=== PATIENT | female | born 1940 | race Caucasian/White ===

== ENCOUNTER 2016-12-01 19:53 | Outpatient (CLI) | payer MEDICARE, OTHER | END 2016-12-01 19:54 | disposition home or self-care (01) | DX: I10 Essential (primary) hypertension (principal); E78.5 Hyperlipidemia, unspecified; E03.9 Hypothyroidism, unspecified ==

== ENCOUNTER 2017-02-14 14:31 | Outpatient (CLI) | payer MEDICARE, OTHER ==
--- NOTE | 2017-02-14 21:01 | MRI Report ---
EXAM: MRI BRAIN WITHOUT CONTRAST EXAM DATE: 02/14/2017 03:37 PM. CLINICAL HISTORY: 76-year-old woman with tingling sensation along the left side of the face and extre mities for 3-4 weeks. COMPARISON: None. TECHNIQUE: Multiplanar, multisequence T1-weighted and fluid-sensitive MR sequences of the brain were performed. Sequences optimized for routine evaluation. Other: None. IV Contrast: None. FINDINGS: Parenchyma: No evidence of acute infarct on diffusion weighted sequence. Parenchyma demonstrates norm al signal intensity on T1- and T2-weighted sequences. No evidence of prior hemorrhage on susceptibili ty weighted sequence. Pituitary: Unremarkable. Ventricles and Extra-axial Spaces: Ventricles are symmetric and normal in size for age. Extra-axial s paces are unremarkable. Orbits: Unremarkable. Sinuses: Paranasal sinuses and mastoid air cells are clear. Major Vascular Flow Voids: Intact. IMPRESSION: 1. Normal noncontrast brain MRI. No evidence of infarct, hemorrhage, or mass lesion. [facility] Referring Provider Line: [phone] SITE ID: [id number]
== END 2017-02-14 14:32 | disposition home or self-care (01) ==
LOC: DI 14:31
PROVIDERS: ATTEND Family Medicine
DX: R20.2 Paresthesia of skin (principal)
CPT/HCPCS: 70551

== ENCOUNTER 2017-06-29 10:44 | Outpatient (CLI) | payer MEDICARE, OTHER ==
--- NOTE | 2017-06-29 16:01 | Mammography Report ---
DIGITAL DIAGNOSTIC BILATERAL MAMMOGRAM: 06/29/2017 CLINICAL INDICATION: History of right breast cancer, status post lumpectomy and radiation therapy, le ft breast pain. TECHNIQUE: Bilateral CC and MLO views, bilateral laterally exaggerated CC views, left true lateral vi ew. Markers were placed at the site of focal pain in the left upper outer quadrant. COMPARISON: 05/22/2016, 05/04/2015, 04/10/2014, 04/21/2013, 04/29/2012, 05/07/2011, 05/01/2011, 01/11. FINDINGS: The breasts again demonstrate scattered fibroglandular densities bilaterally. Postoperativ e and posttreatment changes in the right breast are stable. Coarse and punctate, typically benign ivet cifications are present. No mammographic abnormality is appreciated in the left upper outer posterior breast, at the site indicated by the markers. There has been no significant interval change. IMPRESSION: BENIGN FINDINGS. RECOMMENDATION: ROUTINE ANNUAL SCREENING UNLESS OTHERWISE CLINICALLY INDICATED. BIRADS CATEGORY 2-BENIGN FINDINGS. STANDARD QUALIFYING STATEMENTS 1. This examination was reviewed with the aid of Computer-Aided Detection (CAD). 2. A negative or benign imaging report should not delay biopsy if clinically suspicious findings are present. Consider surgical consultation if warranted. More than 5% of cancers are not identified by i maging. 3. Dense breasts may obscure an underlying neoplasm. JOB #: [id number] EXT JOB #:[id number]
== END 2017-06-29 10:45 | disposition home or self-care (01) ==
LOC: DI 10:44
PROVIDERS: ATTEND Family Medicine
DX: N64.4 Mastodynia (principal); Z85.3 Personal history of malignant neoplasm of breast
CPT/HCPCS: 77066

== ENCOUNTER 2017-11-24 08:00 | Outpatient (CLI) | payer MEDICARE, OTHER ==
[2017-11-24 20:02] LABS: ALBUMIN 3.9 g/dL (3.2-5.5); ALBUMIN/GLOBULIN RATIO 1.1 (1.0-2.2); ALKALINE PHOSPHATASE 50 IU/L (42-121); ALT ALANINE AMINOTRANSFERASE 26 IU/L (10-60); AST ASPARTATE AMINOTRANSFERASE 30 IU/L (10-42); BILIRUBIN,TOTAL 0.3 mg/dL (0.2-1.0); BUN - BLOOD UREA NITROGEN 17 mg/dL (6-20); CALCIUM 9.2 mg/dL (8.5-10.3); CARBON DIOXIDE - CO2 27 mmol/L (21-32); CHLORIDE 100 mmol/L (101-111); CREATININE 0.9 mg/dL (0.4-1.0); GFR - MDRD 61 (>89); GLUCOSE 90 mg/dL (70-100); SODIUM 134 mmol/L (135-145); TOTAL PROTEIN 7.3 g/dL (6.7-8.2)
[2017-11-24 20:08] LABS: THYROID STIMULATING HORMONE 0.24 uIU/mL (0.34-5.60)
[2017-11-24 21:55] LABS: FREE T4 (FREE THYROXINE) 1.27 ng/dL (0.58-1.64)
== END 2017-11-24 08:01 ==
LOC: LAB.WCP 08:00
PROVIDERS: ATTEND Family Medicine
DX: E03.9 Hypothyroidism, unspecified (principal); R20.2 Paresthesia of skin
CPT/HCPCS: 36415; 80053; 82607; 84439; 84443

== ENCOUNTER 2017-11-30 15:04 | Outpatient (CLI) | payer MEDICARE, OTHER ==
--- NOTE | 2017-11-30 16:20 | Ultrasound Report ---
THYROID ULTRASOUND: 11/30/2017 CLINICAL INDICATION: Followup thyroid nodule. COMPARISON: 01/03/2016. TECHNIQUE: Real-time scanning was performed with inbound sales representative static images obtained. FINDINGS: The right lobe measures 2.7 x 1.0 x 0.7 cm, and the left lobe measures 3.0 x 1.2 x 0.9 cm. The isthmus measures 1 mm. The nodule in the upper pole of the left lobe is stable, measuring 9 x 8 x 8 mm. No new suspicious nodule is identified. IMPRESSION: DIMINUTIVE THYROID, WITH A STABLE SUBCENTIMETER NODULE IN THE UPPER POLE OF THE LEFT LOBE. TD: 11/30/2017 16:19
== END 2017-11-30 15:05 | disposition home or self-care (01) ==
LOC: DI 15:04
PROVIDERS: ATTEND Family Medicine
DX: E04.1 Nontoxic single thyroid nodule (principal)
CPT/HCPCS: 76536

== ENCOUNTER 2018-01-21 20:10 | Emergency (ER) | payer MEDICARE, OTHER ==
[2018-01-21 20:40] LABS: BASOPHILS % (AUTO) 0.8 %; EOSINOPHILS # (AUTO) 0.1 10^3/uL (0.0-0.7); EOSINOPHILS % (AUTO) 1.8 %; HGB - HEMOGLOBIN 13.3 g/dL (12.0-16.0); LYMPHOCYTES # (AUTO) 1.9 10^3/uL (1.5-3.5); LYMPHOCYTES % (AUTO) 32.3 %; MEAN CORPUSCULAR HEMOGLOBIN 31.2 pg (27.0-31.0); MEAN CORPUSCULAR HGB CONC 33.5 g/dL (32.0-36.0); MEAN PLATELET VOLUME 8.5 fL (7.9-10.8); MONOCYTES # (AUTO) 0.6 10^3/uL (0.0-1.0); MONOCYTES % (AUTO) 9.5 %; NEUTROPHILS # (AUTO) 3.3 10^3/uL (1.5-6.6); NEUTROPHILS % (AUTO) 55.6 %; PLT - PLATELET COUNT 212 10^3/uL (130-450); RED BLOOD COUNT 4.27 10^6/uL (4.20-5.40); RED CELL DISTRIBUTION WIDTH 13.6 % (12.0-15.0); WHITE BLOOD COUNT 5.9 x10^3/uL (4.8-10.8)
[2018-01-21 20:48] LABS: ALBUMIN/GLOBULIN RATIO 1.1 (1.0-2.2); BILIRUBIN,TOTAL 0.4 mg/dL (0.2-1.0); CALCIUM 9.5 mg/dL (8.5-10.3); CREATININE 0.9 mg/dL (0.4-1.0); TOTAL PROTEIN 7.7 g/dL (6.7-8.2)
[2018-01-21 20:54] LABS: TROPONIN I < 0.04 ng/mL (<0.49)
[2018-01-21 20:56] LABS: CREATINE KINASE MB 1.4 ng/mL (0.6-6.3)
--- NOTE | 2018-01-21 21:29 | ED Physician Documentation ---
History of Present Illness - Stated complaint Stated Complaint: HBP/IRR HEARTBEAT - Chief complaint Chief Complaint: Cardiac - History obtained from History obtained from: Patient - History of Present Illness Timing: Today, How many hours ago (3) Pain level max: 0 Pain level now: 0 Improved by: rest Worsened by: exertion - Additonal information Additional information: patient complains of sensation of a regular palpitations over past three hours, and continuing while in emergency department. She denies chest pain or pressure , denies shortness of breath. She has had similar palpitations in the past, and underwent an ablation earlier this week. She says she has not had these palpitations last as long as they have tonight, in the past. Review of Systems Cardiac: reports: Palpitations. denies: Chest pain / pressure, Pedal edema Respiratory: reports: Reviewed and negative GI: reports: Reviewed and negative PD PAST MEDICAL HISTORY - Past Medical History Past Medical History: Yes Cardiovascular: Hypertension, High cholesterol, Angina, Arrhythmia Respiratory: COPD, Emphysema Endocrine/Autoimmune: HyPOthyroidism GI: GERD : Kidney stones, Other HEENT: None Psych: Anxiety Musculoskeletal: Osteoporosis, Osteopenia Derm: Eczema - Past Surgical History Past Surgical History: Yes General: Cholecystectomy, Colonoscopy, EGD /CHILDCARE CENTER ADMINISTRATOR: Hysterectomy, Other - Present Medications Home Medications: Ambulatory Orders Medication Instructions Recorded Confirmed Albuterol Sulfate [Proair Hfa] 2 puffs IH Q4H PRN 06/23/13 02/01/16 Calcitriol [Rocaltrol] 0.25 mcg PO DAILY 06/23/13 02/01/16 LORazepam [Ativan] 0.25 - 0.5 mg PO BID PRN 06/23/13 02/01/16 Levothyroxine [Synthroid] 75 mcg PO QDAC 06/23/13 02/01/16 Raloxifene [Evista] 60 mg PO DAILY 06/23/13 02/01/16 Aspirin [Aspir-Low] 81 mg PO DAILY 09/12/15 02/01/16 Estradiol [Vagifem] 10 mcg VG .BIWEEKLY 01/25/16 02/01/16 Fluticasone Propionate [Flonase 1 spray NS BID 01/25/16 02/01/16 Allergy Relief] Fluticasone/Salmeterol 250/50 1 puffs INH BID 01/25/16 02/01/16 [Advair 250 Mcg/50 Mcg] Multivitamin-Min/Iron/FA/Vit K 1 each PO DAILY 01/25/16 02/01/16 [Multi-Day Plus Minerals Tablet] Calcium Carbonate [Antacid] 600 mg PO DAILY 02/01/16 02/01/16 Magnesium Oxide [Mag Ox] 400 mg PO QPM 02/01/16 02/01/16 Metoprolol Tartrate [Lopressor] 25 mg PO BID 02/01/16 02/01/16 - Allergies Allergies/Adverse Reactions: Allergies Allergy/AdvReac Type Severity Reaction Status Date / Time iodine Allergy Severe Anaphylaxis Verified 01/21/18 20:27 penicillin V potassium * Allergy Severe Edema Verified 01/25/16 14:17 [From Pen-Vee K] pseudoephedrine Allergy Severe Unknown Verified 01/25/16 14:17 alendronate sodium Allergy Intermediate unknown Verified 09/12/15 14:14 [From Fosamax] ephedrine [Ephedrine] Allergy Intermediate Unknown Verified 01/25/16 14:17 metronidazole [From Flagyl] Allergy Intermediate Emesis Verified 06/23/13 14:56 Metronidazole HCl * Allergy Intermediate Emesis Verified 06/23/13 14:56 [From Flagyl] - Social History Does the pt smoke?: No Smoking Status: Never smoker Does the pt drink ETOH?: No Does the pt have substance abuse?: No - Immunizations Immunizations are current?: No Immunizations: TDAP >10years/unknown - POLST Patient has POLST: No PD ED PE NORMAL - Vitals Vital signs reviewed: Yes - General General: Alert and oriented X 3, No acute distress, Well developed/nourished - Neck Neck: Thyroid normal - Cardiac Cardiac: No murmur - Respiratory Respiratory: No respiratory distress, Clear bilaterally - Extremities Extremities: No edema PD ED PE EXPANDED - Cardiac Cardiac: Regular Rate, Abnormal Rhythm (frequent extra beats) Results - Vitals Vitals: Oxygen O2 Source Room air - EKG (time done) No standard instances Rate: Rate (enter#) (93) Rhythm: Other (ventricular bigemniy) [place]: Normal Intervals: Normal [place] QRS: Normal Ischemia: Normal ST segments - Labs Labs: Laboratory Tests 01/21/18 01/21/18 01/21/18 20:28 20:28 20:28 WBC 5.9 RBC 4.27 Hgb 13.3 Hct 39.7 MCV 93.0 MCH 31.2 H MCHC 33.5 RDW 13.6 Plt Count 212 MPV 8.5 Neut # (Auto) 3.3 Lymph # (Auto) 1.9 [place] # (Auto) 0.6 Eos # (Auto) 0.1 Baso # (Auto) 0.0 Absolute Nucleated RBC 0.00 Nucleated RBC % 0.1 Sodium Potassium Chloride Carbon Dioxide Anion Gap BUN Creatinine Estimated GFR (MDRD) Glucose Calcium Magnesium Total Bilirubin AST ALT Alkaline Phosphatase Total Creatine Kinase 95 CK-MB (CK-2) 1.4 Troponin I < 0.04 Total Protein Albumin Globulin Albumin/Globulin Ratio Lipase 01/21/18 01/21/18 20:28 20:28 WBC RBC Hgb Hct MCV MCH MCHC RDW Plt Count MPV Neut # (Auto) Lymph # (Auto) [place] # (Auto) Eos # (Auto) Baso # (Auto) Absolute Nucleated RBC Nucleated RBC % Sodium 135 Potassium 3.8 Chloride 101 Carbon Dioxide 27 Anion Gap 7.0 BUN 15 Creatinine 0.9 Estimated GFR (MDRD) 61 L Glucose 112 H Calcium 9.5 Magnesium 2.3 Total Bilirubin 0.4 AST 32 ALT 28 Alkaline Phosphatase 46 Total Creatine Kinase CK-MB (CK-2) Troponin I Total Protein 7.7 Albumin 4.0 Globulin 3.7 Albumin/Globulin Ratio 1.1 Lipase 31 PD MEDICAL DECISION MAKING - ED course Complexity details: reviewed results, re-evaluated patient, considered differential, d/w patient ED course: D/W timber repairer covering for Dr. Daley, and he recommends increasing the toprol to 50mg BID, and contact her timber repairer in AM. - Sepsis Event Vital Signs: Oxygen O2 Source Room air Departure - Departure Disposition: 01 Home, Self Care Clinical Impression: Ventricular bigeminy Condition: Good Instructions: ED Palpitations Comments: Contact your timber repairer in the morning to arrange follow-up. I discussed your case with the covering timber repairer on-call orlin, and he recommends that you increase the toprol to 50mg twice per day. Discharge Date/Time: 01/21/18 23:01
[2018-01-21] MEDS ORDERED: POTASSIUM BICARB 25 MEQ TABLET PO STA (21:57)
[2018-01-21 23:03] VITALS: BP 170/77
== END 2018-01-21 23:01 | disposition home or self-care (01) ==
LOC: ED 20:10
DX: I49.3 Ventricular premature depolarization (principal); I10 Essential (primary) hypertension; E78.00 Pure hypercholesterolemia, unspecified; I20.9 Angina pectoris, unspecified; J44.9 Chronic obstructive pulmonary disease, unspecified; E03.9 Hypothyroidism, unspecified; K21.9 Gastro-esophageal reflux disease without esophagitis; M81.0 Age-related osteoporosis without current pathological fracture; Z87.442 Personal history of urinary calculi; Z79.82 Long term (current) use of aspirin
CPT/HCPCS: 36415; 80053; 82550; 82553; 83690; 83735; 84484; 85025; 93005; 99283

== ENCOUNTER 2018-03-30 11:10 | Outpatient (CLI) | payer MEDICARE, OTHER ==
[2018-03-30 18:39] LABS: BASOPHILS % (AUTO) 0.5 %; EOSINOPHILS % (AUTO) 0.8 %; HGB - HEMOGLOBIN 13.9 g/dL (12.0-16.0); LYMPHOCYTES # (AUTO) 1.5 10^3/uL (1.5-3.5); LYMPHOCYTES % (AUTO) 24.1 %; MEAN CORPUSCULAR HEMOGLOBIN 31.4 pg (27.0-31.0); MEAN CORPUSCULAR HGB CONC 33.8 g/dL (32.0-36.0); MEAN CORPUSCULAR VOLUME 92.7 fL (81.0-99.0); MONOCYTES # (AUTO) 0.5 10^3/uL (0.0-1.0); MONOCYTES % (AUTO) 7.5 %; NEUTROPHILS # (AUTO) 4.1 10^3/uL (1.5-6.6); NEUTROPHILS % (AUTO) 67.1 %; PLT - PLATELET COUNT 182 10^3/uL (130-450); RED BLOOD COUNT 4.43 10^6/uL (4.20-5.40); RED CELL DISTRIBUTION WIDTH 14.2 % (12.0-15.0); WHITE BLOOD COUNT 6.1 x10^3/uL (4.8-10.8)
[2018-03-30 19:20] LABS: ALBUMIN 4.3 g/dL (3.2-5.5); ALBUMIN/GLOBULIN RATIO 1.3 (1.0-2.2); ALKALINE PHOSPHATASE 46 IU/L (42-121); ALT ALANINE AMINOTRANSFERASE 34 IU/L (10-60); AST ASPARTATE AMINOTRANSFERASE 33 IU/L (10-42); BUN - BLOOD UREA NITROGEN 18 mg/dL (6-20); CALCIUM 9.5 mg/dL (8.5-10.3); CARBON DIOXIDE - CO2 27 mmol/L (21-32); CHLORIDE 104 mmol/L (101-111); CREATININE 0.9 mg/dL (0.4-1.0); GFR - MDRD 61 (>89); GLUCOSE 107 mg/dL (70-100); SODIUM 137 mmol/L (135-145); TOTAL PROTEIN 7.5 g/dL (6.7-8.2)
== END 2018-03-30 11:11 ==
LOC: LAB.WCP 11:10
PROVIDERS: ATTEND Family Medicine
DX: R10.32 Left lower quadrant pain (principal); E03.9 Hypothyroidism, unspecified
CPT/HCPCS: 36415; 80053; 84443; 85025

== ENCOUNTER 2018-04-21 11:02 | Outpatient (CLI) | payer MEDICARE, OTHER ==
[2018-04-21] MEDS ORDERED: IOPAMIDOL-300 100 ML VIAL ONE (12:09)
[2018-04-21] MEDS ORDERED: BARIUM SULFATE 450 ML BOTTLE PO ONE (12:44)
[2018-04-21] MEDS ORDERED: IOPAMIDOL-300 100 ML VIAL IVP ONE (12:44)
[2018-04-21] MEDS ORDERED: BARIUM SULFATE 355 ML BOTTLE PO SCH (13:00)
[2018-04-21] MEDS ORDERED: BARIUM SULFATE 355 ML BOTTLE PO ONE (13:00)
--- NOTE | 2018-04-21 17:38 | CT Report ---
Reason: MASTALGIA/ ABDOMINAL PAIN, LLQ Procedure Date: 04/21/2018 Accession Number: [id number] / [id number] Procedure: CT - Abdomen/Pelvis W/ CPT Code: FULL RESULT: EXAM: CT ABDOMEN AND PELVIS EXAM DATE: 04/21/2018 12:51 PM. CLINICAL HISTORY: Mastalgia and abdominal pain in the left lower quadrant. COMPARISONS: None. TECHNIQUE: Routine helical CT imaging was performed through the abdomen and pelvis. IV contrast: 100 mL Isovue-300. Enteric contrast: No. Reconstructions: Coronal and sagittal. In accordance with CT protocol optimization, one or more of the following dose reduction techniques were utilized for this exam: automated exposure control, adjustment of mA and/or KV based on patient size, or use of iterative reconstructive technique. FINDINGS: Lung Bases: Unremarkable. Liver: Normal. No masses. Gallbladder/Bile Ducts: The patient is status post cholecystectomy. Spleen: Normal. Pancreas: Normal. Adrenal Glands: Normal. Kidneys: Normal. No masses or hydronephrosis. Peritoneal Cavity/Bowel: The patient is status post partial colectomy. There is no free fluid or free air. There is no abdominal or pelvic lymphadenopathy. Pelvic Organs: Normal. The bladder and visualized pelvic organs are within normal limits. Vasculature: Aorta is atherosclerotic without aneurysm. Bones: No significant abnormality. Other: None. IMPRESSION: No acute abdominal or pelvic abnormality. [facility]
== END 2018-04-21 11:03 | disposition home or self-care (01) ==
LOC: DI 11:02
PROVIDERS: ATTEND Family Medicine
DX: N64.4 Mastodynia (principal); R10.32 Left lower quadrant pain
CPT/HCPCS: 74177; 77062; A9270; Q9967

== ENCOUNTER 2018-04-21 11:08 | Outpatient (CLI) | payer MEDICARE, OTHER ==
--- NOTE | 2018-04-21 17:55 | Mammography Report ---
Reason: BILAT DIAG DUE TO CHRONIC LEFT BREAST PAIN Procedure Date: 04/21/2018 Accession Number: [id number] / [id number] Procedure: [facility] - Diagnostic Bilat 3D Joshua CPT Code: 36914 FULL RESULT: EXAM: Diagnostic Bilat 3D Joshua DATE: 04/21/2018 3:26 PM CLINICAL HISTORY: Chronic left breast pain. TECHNIQUE: Bilateral CC and MLO views in 2-D technique in 3 tomographic technique were obtained. COMPARISON: 06/29/2017, 05/22/2016, 05/04/2015, 04/10/2014. FINDINGS: The breasts demonstrate heterogeneously dense fibroglandular parenchyma bilaterally. Bilateral typically benign coarse calcification in bilateral typically benign vascular calcifications are seen. Postsurgical changes are identified in the right breast. No mammographic or tomographic abnormalities identified associated with the area of pain in the left breast. There are no suspicious lesions or calcifications in either breast. IMPRESSION: Benign findings RECOMMENDATION: Recommend routine annual Screening mammography unless otherwise clinically indicated. BIRADS CATEGORY 2: Benign findings STANDARD QUALIFYING STATEMENTS: 1. This examination was not reviewed with the aid of Computer-Aided Detection (CAD). 2. A negative or benign imaging report should not delay biopsy if clinically suspicious findings are present. Consider surgical consultation if warrented. More than 5% of cancers are not identified by imaging. 3. Dense breasts may obscure an underlying neoplasm. 4. This examination was reviewed with the aid of 3D imaging (tomography).
== END 2018-04-21 11:09 | disposition home or self-care (01) ==
LOC: DI 11:08
PROVIDERS: ATTEND Family Medicine
DX: N64.4 Mastodynia (principal)
CPT/HCPCS: 77062

== ENCOUNTER 2018-11-16 15:27 | Emergency (ER) | payer MEDICARE, OTHER ==
--- NOTE | 2018-11-16 15:53 | ED Physician Documentation ---
PD HPI ABD PAIN - Stated complaint Stated Complaint: ABD/BACK PAIN - Chief complaint Chief Complaint: Abd Pain - History obtained from History obtained from: Patient - History of Present Illness Timing - onset: Other (3 days of pain from LUQ radiating to L scapula. Intermittent pain with spikes. Worked out today and did fine but pain recurred 2 hrs after workout. Each episode is seconds long at most. Had this a couple of years ago, went away, did not seek medical attention then.) Review of Systems Ten Systems: 10 systems reviewed and negative Constitutional: denies: Fever, Chills Cardiac: denies: Chest pain / pressure, Palpitations Respiratory: denies: Dyspnea, Cough GI: denies: Nausea, Vomiting, Diarrhea PD PAST MEDICAL HISTORY - Past Medical History Cardiovascular: Hypertension, High cholesterol, Angina, Arrhythmia Respiratory: COPD, Emphysema Endocrine/Autoimmune: HyPOthyroidism GI: GERD : Kidney stones, Other HEENT: None Psych: Anxiety Musculoskeletal: Osteoporosis, Osteopenia Derm: Eczema - Past Surgical History Past Surgical History: Yes General: Cholecystectomy, Colonoscopy, EGD /BOOKING OFFICER: Hysterectomy, Other - Present Medications Home Medications: Ambulatory Orders Medication Instructions Recorded Confirmed Albuterol Sulfate [Proair Hfa] 2 puffs IH Q4H PRN 06/23/13 11/16/18 Levothyroxine [Synthroid] 75 mcg PO QDAC 06/23/13 11/16/18 Aspirin [Aspir-Low] 81 mg PO DAILY 09/12/15 11/16/18 Fluticasone/Salmeterol 250/50 1 puffs INH BID 01/25/16 11/16/18 [Advair 250 Mcg/50 Mcg] Metoprolol Tartrate [Lopressor] 25 mg PO BID 02/01/16 11/16/18 Losartan [Cozaar] 1 tab PO BID 11/16/18 11/16/18 Nitrofurantoin Monohyd/M-Cryst 100 mg PO BID #10 capsule 11/16/18 [Macrobid 100 mg Capsule] - Allergies Allergies/Adverse Reactions: Allergies Allergy/AdvReac Type Severity Reaction Status Date / Time iodine Allergy Severe Anaphylaxis Verified 11/16/18 15:33 penicillin V potassium * Allergy Severe Edema Verified 11/16/18 15:33 [From Pen-Vee K] pseudoephedrine Allergy Severe Unknown Verified 11/16/18 15:33 alendronate sodium Allergy Intermediate unknown Verified 11/16/18 15:33 [From Fosamax] ephedrine [Ephedrine] Allergy Intermediate Unknown Verified 11/16/18 15:33 metronidazole [From Flagyl] Allergy Intermediate Emesis Verified 11/16/18 15:33 Metronidazole HCl * Allergy Intermediate Emesis Verified 11/16/18 15:33 [From Flagyl] - Social History Does the pt smoke?: No Smoking Status: Never smoker Does the pt drink ETOH?: No Does the pt have substance abuse?: No - Family History Family history: reports: Non contributory - Immunizations Immunizations are current?: No Immunizations: TDAP >10years/unknown - POLST Patient has POLST: No PD ED PE NORMAL - Vitals Vital signs reviewed: Yes - General General: Alert and oriented X 3, No acute distress - HEENT HEENT: PERRL, EOMI - Neck Neck: Supple, no meningeal sign, No bony TTP - Cardiac Cardiac: RRR (with frequent extrasystoles, PVC on monitor.), No murmur - Respiratory Respiratory: No respiratory distress, Clear bilaterally - Abdomen Abdomen: Normal bowel sounds, Soft, Non tender - Back Back: No CVA TTP, No spinal TTP - Derm Derm: Normal color, Warm and dry - Extremities Extremities: No edema, No calf tenderness / cord - Neuro Neuro: Alert and oriented X 3, Normal speech - Psych Psych: Normal mood, Normal affect Results - Vitals Vitals: Vital Signs - 24 hr 11/16/18 11/16/18 15:31 15:54 Temperature 36.7 C Heart Rate 77 84 Respiratory 17 18 Rate Blood Pressure 187/91 H 159/70 H O2 Saturation 97 97 Oxygen O2 Source Room air - EKG (time done) 1611 Rate: Rate (enter#) (73) Rhythm: NSR (with pvcs) [place]: Normal Intervals: Normal [place] QRS: Normal Ischemia: Normal ST segments Computer interpretation: Agree with computer - Labs Labs: Laboratory Tests 11/16/18 11/16/18 11/16/18 15:45 15:45 15:45 WBC 6.1 RBC 4.57 Hgb 13.9 Hct 41.4 MCV 90.6 MCH 30.4 MCHC 33.5 RDW 14.2 Plt Count 172 MPV 8.5 Neut # (Auto) 3.5 Lymph # (Auto) 1.9 [place] # (Auto) 0.5 Eos # (Auto) 0.1 Baso # (Auto) 0.0 Absolute Nucleated RBC 0.00 Nucleated RBC % 0.0 Sodium 136 Potassium 3.5 Chloride 102 Carbon Dioxide 26 Anion Gap 8.0 BUN 15 Creatinine 0.8 Estimated GFR (MDRD) 70 L Glucose 127 H Calcium 9.5 Total Bilirubin 0.7 AST 29 ALT 24 Alkaline Phosphatase 52 Troponin I < 0.04 Total Protein 7.4 Albumin 4.1 Globulin 3.3 Albumin/Globulin Ratio 1.2 Lipase 37 Urine Color Urine Clarity Urine pH Ur Specific [place] Urine Protein Urine Glucose (UA) Urine Ketones Urine Occult Blood Urine Nitrite Urine Bilirubin Urine Urobilinogen Ur Leukocyte Esterase Urine RBC Urine WBC Ur Squamous Epith Cells Urine Bacteria Ur Microscopic Review Urine Culture Comments 11/16/18 16:30 WBC RBC Hgb Hct MCV MCH MCHC RDW Plt Count MPV Neut # (Auto) Lymph # (Auto) [place] # (Auto) Eos # (Auto) Baso # (Auto) Absolute Nucleated RBC Nucleated RBC % Sodium Potassium Chloride Carbon Dioxide Anion Gap BUN Creatinine Estimated GFR (MDRD) Glucose Calcium Total Bilirubin AST ALT Alkaline Phosphatase Troponin I Total Protein Albumin Globulin Albumin/Globulin Ratio Lipase Urine Color YELLOW Urine Clarity CLEAR Urine pH 6.0 Ur Specific [place] <=1.005 Urine Protein NEGATIVE Urine Glucose (UA) NEGATIVE Urine Ketones NEGATIVE Urine Occult Blood SMALL H Urine Nitrite NEGATIVE Urine Bilirubin NEGATIVE Urine Urobilinogen 0.2 (NORMAL) Ur Leukocyte Esterase SMALL H Urine RBC None Seen Urine WBC 11-25 H Ur Squamous Epith Cells RARE Squamous Urine Bacteria Many H Ur Microscopic Review INDICATED Urine Culture Comments INDICATED PD MEDICAL DECISION MAKING - ED course ED course: 78-year-old woman with fleeting episodic chest pain that is nonexertional and lasts only seconds at a time. She is having PVCs on the monitor but it sounds like these are chronic and not associated with her symptoms. She had no symptoms while in the emergency department. The only positive diagnostic test is a urinalysis of which she does not really have any symptoms but the urinalysis seems pretty impressive so we will treat her with Macrobid. Departure - Departure Disposition: 01 Home, Self Care Clinical Impression: Cystitis Chest pain Qualifiers: Chest pain type: unspecified Qualified Code(s): R07.9 - Chest pain, unspecified Condition: Good Record reviewed to determine appropriate education?: Yes Instructions: ED Chest Pain NonCardiac, ED UTI Cystitis Female Prescriptions: Nitrofurantoin Monohyd/M-Cryst [Macrobid 100 mg Capsule] 100 mg PO BID #10 caps ule Comments: As discussed the pattern of your chest pain suggests no serious etiology but return if it becomes constant or worsens. If it continues to talk with your doctor about stress testing and/or Holter monitor. Follow-up with your doctor, next available appointment. We will culture your urine, the results should be done in 48-72 hours. If an antibiotic change is necessary we will call you. Return if worse in the meantime, especially if you develop increasing flank pain, fevers, or cannot keep down the medication.
[2018-11-16 15:59] LABS: BASOPHILS % (AUTO) 0.3 %; EOSINOPHILS # (AUTO) 0.1 10^3/uL (0.0-0.7); EOSINOPHILS % (AUTO) 1.2 %; HGB - HEMOGLOBIN 13.9 g/dL (12.0-16.0); LYMPHOCYTES # (AUTO) 1.9 10^3/uL (1.5-3.5); LYMPHOCYTES % (AUTO) 31.7 %; MEAN CORPUSCULAR HEMOGLOBIN 30.4 pg (27.0-31.0); MEAN CORPUSCULAR HGB CONC 33.5 g/dL (32.0-36.0); MEAN CORPUSCULAR VOLUME 90.6 fL (81.0-99.0); MEAN PLATELET VOLUME 8.5 fL (7.9-10.8); MONOCYTES # (AUTO) 0.5 10^3/uL (0.0-1.0); NEUTROPHILS # (AUTO) 3.5 10^3/uL (1.5-6.6); NEUTROPHILS % (AUTO) 57.8 %; PLT - PLATELET COUNT 172 10^3/uL (130-450); RED BLOOD COUNT 4.57 10^6/uL (4.20-5.40); RED CELL DISTRIBUTION WIDTH 14.2 % (12.0-15.0); WHITE BLOOD COUNT 6.1 x10^3/uL (4.8-10.8)
[2018-11-16 16:10] LABS: ALBUMIN 4.1 g/dL (3.2-5.5); ALBUMIN/GLOBULIN RATIO 1.2 (1.0-2.2); BILIRUBIN,TOTAL 0.7 mg/dL (0.2-1.0); CALCIUM 9.5 mg/dL (8.5-10.3); CREATININE 0.8 mg/dL (0.4-1.0); TOTAL PROTEIN 7.4 g/dL (6.7-8.2)
[2018-11-16 16:48] LABS: BILIRUBIN,URINE NEGATIVE (NEGATIVE); GLUCOSE, URINE (UA) NEGATIVE (NEGATIVE); KETONES,URINE (UA) NEGATIVE (NEGATIVE); LEUKOCYTE ESTERASE, URINE SMALL (NEGATIVE); NITRITE,URINE NEGATIVE (NEGATIVE); OCCULT BLOOD,URINE SMALL (NEGATIVE); PROTEIN,URINE NEGATIVE (NEGATIVE); UROBILINOGEN,URINE 0.2 (NORMAL) E.U./dL (NORMAL)
[2018-11-16 16:52] LABS: CLARITY,URINE CLEAR (CLEAR)
[2018-11-16 16:53] LABS: BACTERIA,URINE Many /HPF (None Seen); RBC,URINE None Seen /HPF (0-5); SQUAMOUS EPITHELIAL CELL,UR RARE Squamous (<= Few)
[2018-11-16] MEDS ORDERED: NITROFURANTOIN MACRO 100 MG CAPSULE PO STA (17:00)
[2018-11-16 17:05] VITALS: BP 179/82
== END 2018-11-16 17:17 | disposition home or self-care (01) ==
LOC: ED 15:27
DX: N30.90 Cystitis, unspecified without hematuria (principal); R07.9 Chest pain, unspecified; I10 Essential (primary) hypertension
CPT/HCPCS: 36415; 80053; 81001; 83690; 84484; 85025; 87086; 93005; 99283; 99284; A9270; 81003

== ENCOUNTER 2018-12-20 13:21 | Outpatient (CLI) | payer MEDICARE, OTHER | END 2018-12-20 13:22 | disposition home or self-care (01) | LOC: LAB 13:21 | PROVIDERS: ATTEND Physician Assistant | DX: I10 Essential (primary) hypertension (principal); I49.3 Ventricular premature depolarization | CPT/HCPCS: 36415; 84443 ==

== ENCOUNTER 2019-01-04 10:32 | Outpatient (CLI) | payer MEDICARE, OTHER ==
--- NOTE | 2019-01-04 11:40 | XRAY Report ---
Reason: ARTHRITIS,LEFT HIP Procedure Date: 01/04/2019 Accession Number: [id number] / [id number] Procedure: WCP - Hip w/Pelvis 2-3V LT CPT Code: FULL RESULT: EXAM: LEFT HIP RADIOGRAPHY EXAM DATE: 01/04/2019 10:56 AM. CLINICAL HISTORY: Chronic left hip pain. COMPARISON: 02/18/2010 1:52 PM. TECHNIQUE: 2 views. FINDINGS: Bones: Normal. No fractures or bone lesion. Joints: There is mild marginal osteophytosis with mild joint space loss at the left femoral acetabular joint. Osteophytosis has progressed; joint space loss is similar to 2009. Soft Tissues: Normal. No soft tissue swelling. IMPRESSION: Left hip degenerative changes as described. [facility]
== END 2019-01-04 10:33 | disposition home or self-care (01) ==
LOC: DI.WCP 10:32
PROVIDERS: ATTEND Family Medicine
DX: M16.12 Unilateral primary osteoarthritis, left hip (principal)

== ENCOUNTER 2019-01-26 11:22 | Day surgery (SDC) | payer MEDICARE, OTHER ==
[2019-01-26] MEDS ORDERED: LACTATED RINGERS 1,000 ML IV ONE (12:32)
[2019-01-26] MEDS ORDERED: LIDO GARGLE 30 ML BOTTLE ONE (13:22)
[2019-01-26] MEDS ORDERED: BENZOCAINE/TETRACAINE/BUTAMBEN 20 GM TOP ONE (13:36)
[2019-01-26] MEDS ORDERED: fentaNYL 250 MCG/5 ML VIAL IVP ONE (14:10)
[2019-01-26] MEDS ORDERED: MIDAZOLAM 2 MG/2 ML VIAL IVP ONE (14:10)
[2019-01-26 15:29] VITALS: BP 147/65
== END 2019-01-26 11:23 | disposition home or self-care (01) ==
LOC: SDS 11:22
PROVIDERS: ATTEND Surgery
PROC: 0DB58ZX Excision of Esophagus, Via Natural or Artificial Opening Endoscopic, Diagnostic (ICD-10-PCS; 2019-01-26)
PROC: 0DJD8ZZ Inspection of Lower Intestinal Tract, Via Natural or Artificial Opening Endoscopic (ICD-10-PCS; 2019-01-26)
PROC: 0DB98ZX Excision of Duodenum, Via Natural or Artificial Opening Endoscopic, Diagnostic (ICD-10-PCS; principal; 2019-01-26 12:30)
PROC: 0DB78ZX Excision of Stomach, Pylorus, Via Natural or Artificial Opening Endoscopic, Diagnostic (ICD-10-PCS; 2019-01-26 12:30)
DX: Z12.11 Encounter for screening for malignant neoplasm of colon (principal); Z86.010 Personal history of colon polyps; K22.70 Barrett's esophagus without dysplasia; K31.9 Disease of stomach and duodenum, unspecified; K40.90 Unilateral inguinal hernia, without obstruction or gangrene, not specified as recurrent; Z87.19 Personal history of other diseases of the digestive system; Z85.3 Personal history of malignant neoplasm of breast; Z92.3 Personal history of irradiation; Z77.22 Contact with and (suspected) exposure to environmental tobacco smoke (acute) (chronic); Z90.49 Acquired absence of other specified parts of digestive tract
CPT/HCPCS: 43239; A9270; G0105; J3010; J7120

== ENCOUNTER 2019-02-09 08:00 | Outpatient (CLI) | payer MEDICARE, OTHER | END 2019-02-09 23:59 | disposition home or self-care (01) | LOC: LAB.R 08:00 | PROVIDERS: ATTEND Family Medicine | DX: R19.7 Diarrhea, unspecified (principal) | CPT/HCPCS: 81599; 83630; 87045; 87046; 87177; 87209; 87493 ==

== ENCOUNTER 2019-06-22 12:58 | Outpatient (CLI) | payer MEDICARE, OTHER ==
[2019-06-22 15:58] LABS: CALCIUM 9.1 mg/dL (8.5-10.3); CREATININE 0.8 mg/dL (0.4-1.0); MAGNESIUM 1.8 mg/dL (1.7-2.8)
== END 2019-06-22 12:59 | disposition home or self-care (01) ==
LOC: LAB 12:58
PROVIDERS: ATTEND Physician Assistant
DX: I49.3 Ventricular premature depolarization (principal); E03.9 Hypothyroidism, unspecified
CPT/HCPCS: 36415; 80048; 83735; 84443

== ENCOUNTER 2019-08-22 09:30 | Outpatient (CLI) | payer MEDICARE, OTHER | END 2019-08-22 23:59 | disposition home or self-care (01) | LOC: LAB.R 09:30 | PROVIDERS: ATTEND Family Medicine | DX: R30.0 Dysuria (principal) | CPT/HCPCS: 87086; 87181 ==

== ENCOUNTER 2019-09-14 08:00 | Outpatient (CLI) | payer MEDICARE, OTHER ==
[2019-09-14 12:08] LABS: BASOPHILS % (AUTO) 0.5 %; EOSINOPHILS # (AUTO) 0.1 10^3/uL (0.0-0.7); EOSINOPHILS % (AUTO) 1.7 %; HGB - HEMOGLOBIN 12.7 g/dL (12.0-16.0); LYMPHOCYTES % (AUTO) 24.6 %; MEAN CORPUSCULAR HEMOGLOBIN 30.8 pg (27.0-31.0); MEAN CORPUSCULAR HGB CONC 32.7 g/dL (32.0-36.0); MEAN CORPUSCULAR VOLUME 93.9 fL (81.0-99.0); MEAN PLATELET VOLUME 10.1 fL (7.9-10.8); MONOCYTES # (AUTO) 0.4 10^3/uL (0.0-1.0); MONOCYTES % (AUTO) 9.3 %; NEUTROPHILS # (AUTO) 2.6 10^3/uL (1.5-6.6); NEUTROPHILS % (AUTO) 63.7 %; PLT - PLATELET COUNT 206 10^3/uL (130-450); RED BLOOD COUNT 4.13 10^6/uL (4.20-5.40); RED CELL DISTRIBUTION WIDTH 13.2 % (12.0-15.0); WHITE BLOOD COUNT 4.1 x10^3/uL (4.8-10.8)
[2019-09-14 12:35] LABS: ALBUMIN 4.1 g/dL (3.2-5.5); ALBUMIN/GLOBULIN RATIO 1.2 (1.0-2.2); CALCIUM 9.2 mg/dL (8.5-10.3); CREATININE 0.9 mg/dL (0.4-1.0); TOTAL PROTEIN 7.4 g/dL (6.7-8.2)
== END 2019-09-14 23:59 | disposition home or self-care (01) ==
LOC: LAB.WCP 08:00
PROVIDERS: ATTEND Nurse Practitioner Family
DX: R53.83 Other fatigue (principal)
CPT/HCPCS: 36415; 80053; 85025

== ENCOUNTER 2020-03-26 10:45 | Outpatient (CLI) | payer MEDICARE, OTHER ==
[2020-03-26 18:20] LABS: BASOPHILS % (AUTO) 0.6 %; EOSINOPHILS # (AUTO) 0.2 10^3/uL (0.0-0.7); EOSINOPHILS % (AUTO) 3.1 %; HGB - HEMOGLOBIN 13.5 g/dL (12.0-16.0); LYMPHOCYTES # (AUTO) 1.3 10^3/uL (1.5-3.5); MEAN CORPUSCULAR HEMOGLOBIN 30.5 pg (27.0-31.0); MEAN CORPUSCULAR HGB CONC 32.5 g/dL (32.0-36.0); MEAN CORPUSCULAR VOLUME 93.7 fL (81.0-99.0); MEAN PLATELET VOLUME 10.1 fL (7.9-10.8); MONOCYTES # (AUTO) 0.4 10^3/uL (0.0-1.0); MONOCYTES % (AUTO) 7.1 %; NEUTROPHILS # (AUTO) 3.4 10^3/uL (1.5-6.6); PLT - PLATELET COUNT 219 10^3/uL (130-450); RED BLOOD COUNT 4.43 10^6/uL (4.20-5.40); RED CELL DISTRIBUTION WIDTH 13.3 % (12.0-15.0); WHITE BLOOD COUNT 5.2 x10^3/uL (4.8-10.8)
[2020-03-26 18:39] LABS: ALBUMIN 4.3 g/dL (3.2-5.5); ALBUMIN/GLOBULIN RATIO 1.3 (1.0-2.2); ALKALINE PHOSPHATASE 47 IU/L (42-121); ALT ALANINE AMINOTRANSFERASE 19 IU/L (10-60); AST ASPARTATE AMINOTRANSFERASE 21 IU/L (10-42); BILIRUBIN,TOTAL 0.6 mg/dL (0.2-1.0); BUN - BLOOD UREA NITROGEN 13 mg/dL (6-20); CALCIUM 9.7 mg/dL (8.5-10.3); CARBON DIOXIDE - CO2 26 mmol/L (21-32); CHLORIDE 100 mmol/L (101-111); CHOL/HDL RATIO 2.7 (<4.4); CHOLESTEROL 221 mg/dL; CREATININE 0.9 mg/dL (0.4-1.0); GLUCOSE 87 mg/dL (70-100); HDL CHOLESTEROL 82 mg/dL; LDL CHOLESTEROL,CALCULATED 121 mg/dL; LDL/HDL RATIO 1.5 (<4.4); SODIUM 133 mmol/L (135-145); TOTAL PROTEIN 7.6 g/dL (6.7-8.2); VLDL CHOLESTEROL 18 mg/dL
== END 2020-03-26 23:59 | disposition home or self-care (01) ==
LOC: LAB.WCP 10:45
PROVIDERS: ATTEND Family Medicine
DX: I10 Essential (primary) hypertension (principal); E78.5 Hyperlipidemia, unspecified; E04.1 Nontoxic single thyroid nodule
CPT/HCPCS: 36415; 80053; 80061; 83721; 84443; 85025

== ENCOUNTER 2020-03-28 09:24 | Outpatient (CLI) | payer MEDICARE, OTHER ==
--- NOTE | 2020-03-28 17:07 | XRAY Report ---
PROCEDURE: Shoulder 2 View RT INDICATIONS: RIGHT SHOULDER PAIN TECHNIQUE: 2 views of the shoulder were acquired. COMPARISON: None. FINDINGS: Bones: No fractures or dislocations. No suspicious bony lesions. Visualized ribs appear intact. S evere acromioclavicular degenerative narrowing. Mild glenohumeral narrowing. Soft tissues: No suspicious soft tissue calcifications. IMPRESSION: Acromioclavicular and glenohumeral degenerative narrowing most consistent with arthritis . Reviewed by: Manda Millard MD on 03/28/2020 5:06 PM PDT Approved by: Manda Millard MD on 03/28/2020 5:06 PM PDT Station ID: [id number]
--- NOTE | 2020-03-28 17:10 | XRAY Report ---
PROCEDURE: Cervical Spine 2 View INDICATIONS: NECK PAIN TECHNIQUE: 3 view(s) of the cervical spine were acquired. COMPARISON: X-ray cervical spine 04/10/2014 FINDINGS: Bones: No fractures or dislocations to the C7-T1 level. The lateral masses of C1 appear intact on t he odontoid view. No suspicious bony lesions. Moderate to severe disc space narrowing is present at C5-6, C6-7. Small anterior osteophytes are present at this level. Multilevel uncovertebral hypertrop hy is present. Overall, mild interval progression. Soft tissues: No prevertebral soft tissue swelling. IMPRESSION: Multilevel degenerative changes most severe at C5-6 and C6-7 with interval progression a s above. Reviewed by: Manda Millard MD on 03/28/2020 5:09 PM PDT Approved by: Manda Millard MD on 03/28/2020 5:09 PM PDT Station ID: [id number]
== END 2020-03-28 09:25 | disposition home or self-care (01) ==
LOC: DI.WCP 09:24
PROVIDERS: ATTEND Family Medicine
DX: M50.322 Other cervical disc degeneration at C5-C6 level (principal); M19.011 Primary osteoarthritis, right shoulder
CPT/HCPCS: 72040

== ENCOUNTER 2020-06-14 09:13 | Outpatient (CLI) | payer MEDICARE, OTHER ==
--- NOTE | 2020-06-15 11:45 | Mammography Report ---
BILATERAL DIGITAL DIAGNOSTIC MAMMOGRAM 3D/2D: 06/14/2020 CLINICAL: Diffuse left breast pain. Comparison is made to exams dated: 06/16/2019 mammogram, 04/21/2018 mammogram, 05/22/2016 mammogram, 06/29/2017 mammogram, 05/04/2015 mammogram, and 05/04/2015 ultrasound - [facility]. The tissue of both breasts is predominantly fatty. No significant masses, calcifications, or other findings are seen in either breast. There has been no significant interval change. IMPRESSION: NEGATIVE There is no mammographic evidence of malignancy. A 1 year screening mammogram is recommended. This exam was interpreted at Station ID: [id number]. NOTE: For mammograms, a report in lay terms will be sent to the patient. Approximately 15% of breast malignancies will not be visualized mammographically. In the management of a palpable breast mass, a negative mammogram must not discourage biopsy of a clinically suspicious lesion. Electronically Signed By: Dawood Lomax M.D., jr/shay:06/14/2020 10:29:26 ACR BI-RADS Category 1: Negative 3341F PARENCHYMAL PATTERN: (F) - The breast(s) demonstrate(s) diffuse fatty replacement. BI-RADS CATEGORY: (1) - 1 RECOMMENDATION: (ANNUAL) - Recommend routine annual screening mammography. [id number] 1 year screening LATERALITY: (B)
== END 2020-06-14 09:14 | disposition home or self-care (01) ==
LOC: DI 09:13
PROVIDERS: ATTEND Family Medicine
DX: N64.4 Mastodynia (principal)
CPT/HCPCS: 77066

== ENCOUNTER 2020-09-17 17:18 | Outpatient (CLI) | payer MEDICARE, OTHER | END 2020-09-17 17:19 | disposition home or self-care (01) | LOC: COV 17:18 | PROVIDERS: ATTEND Ophthalmology | DX: Z01.812 Encounter for preprocedural laboratory examination (principal); H25.811 Combined forms of age-related cataract, right eye; Z20.822 Contact with and (suspected) exposure to COVID-19 ==

== ENCOUNTER 2020-09-20 06:20 | Day surgery (SDC) | payer MEDICARE, OTHER ==
[2020-09-20] MEDS ORDERED: PROPARACAINE 0.5% OPHTH DROPS 15 ML ONE (06:23)
[2020-09-20] MEDS ORDERED: KETOROLAC 0.45% OPHTH DROPS ONE (06:23)
[2020-09-20] MEDS ORDERED: LACTATED RINGERS 500 ML IV ONE ×2 (06:24→07:37)
[2020-09-20] MEDS: PHENYLEPHRINE 2.5% OPHTH 2 ML DROPS ONE ×3 (06:35→06:45)
--- NOTE | 2020-09-20 07:06 | ANESTHESIA ---
Pre-Anesthesia VS, & Labs - Diagnosis right eye senile combined cataract - Procedure right eye cataract extraction with IOL implant Vital Signs: Temp Pulse Resp BP Pulse Ox 36.0 C L 76 19 143/65 H 99 09/20/20 06:38 09/20/20 06:38 09/20/20 06:38 09/20/20 06:38 09/20/20 06:38 Height: 5 ft 3.5 in Weight (kg): 50.1 kg Body Mass Index: 19.2 BMI Classification: Healthy weight - Is Patient ?: No Home Medications and Allergies Home Medications: Ambulatory Orders Diltiazem HCl [Diltiazem 12Hr ER] 120 mg PO DAILY 09/19/20 LORazepam [Ativan] 0.5 mg PO BID 09/19/20 Albuterol Sulfate [Proair Hfa] 2 puffs IH Q4H PRN 06/23/13 Levothyroxine [Synthroid] 50 mcg PO DAILY 06/23/13 Fluticasone/Salmeterol 250/50 [Advair 250 Mcg/50 Mcg] 1 puffs INH BID 01/25/16 Metoprolol Tartrate [Lopressor] 12.5 mg PO DAILY 02/01/16 Losartan [Cozaar] 25 mg PO DAILY 11/16/18 Diltiazem HCl [Diltiazem 12Hr ER] 120 mg PO DAILY 09/19/20 LORazepam [Ativan] 0.5 mg PO BID 09/19/20 Allergies/Adverse Reactions: Allergies Allergy/AdvReac Type Severity Reaction Status Date / Time iodine Allergy Severe Anaphylaxis Verified 09/20/20 06:42 penicillin V potassium * Allergy Severe Edema Verified 09/20/20 06:42 [From Pen-Vee K] pseudoephedrine Allergy Severe Unknown Verified 09/20/20 06:42 alendronate sodium Allergy Intermediate unknown Verified 09/20/20 06:42 [From Fosamax] ephedrine [Ephedrine] Allergy Intermediate Unknown Verified 09/20/20 06:42 metronidazole [From Flagyl] Allergy Intermediate Emesis Verified 09/20/20 06:42 Metronidazole HCl * Allergy Intermediate Emesis Verified 09/20/20 06:42 [From Flagyl] Anes History & Medical History - Anesthetic History Anesthesia Complications: reports: No previous complications - Medical History Cardiovascular: reports: Hypertension, High cholesterol, Arrhythmia Pulmonary: reports: COPD, Emphysema Gastrointestinal: reports: GERD Urinary: reports: Kidney stones, Other Neuro: reports: None Musculoskeletal: reports: Osteoporosis, Osteopenia Endocrine/Autoimmune: reports: HyPOthyroidism Blood Disorders: reports: None Skin: reports: Eczema Smoking Status: Never smoker Psychosocial: reports: Anxiety History of Cancer?: Yes (s/p breast cancer. treated with chemo and radiation) - Surgical History General: Cholecystectomy, Colonoscopy, EGD Urologic: Ureterolithotomy (stones) Gynecologic: Hysterectomy, Other Exam General: Alert, Oriented x3, Cooperative, No acute distress Dental: WNL Mouth Openin Fingerbreadth Neck Mobility: Normal Mallampati classification: I Thyromental Distance: 4-6 cm Respiratory: Lungs clear, Normal breath sounds, No respiratory distress, No accessory muscle use Cardiovascular: Regular rate, Normal S1, Normal S2, No murmurs Mental/Cognitive Status: Alert/Oriented X3, Normal for patient Plan Anesthesia Type: MAC Consent for Procedure(s) Verified and Reviewed: Yes Code Status: Attempt Resuscitation ASA classification: 2-Mild systemic disease Is this case an emergency?: No
[2020-09-20] MEDS ORDERED: TRIAMCIN/MOXIFLOX OPHTHALMIC 0.6 ML VIAL IO ONE ×2 (07:11→07:22)
[2020-09-20] MEDS ORDERED: EPINEPHrine 1 MG/ML AMP ONE (07:11)
[2020-09-20] MEDS ORDERED: BRIMONIDINE 0.2% OPHTH DROPS 5 ML ONE (07:11)
[2020-09-20] MEDS ORDERED: BSS/LIDOCAINE/EPINEPHRINE 1 ML SYRINGE ONE (07:12)
[2020-09-20] MEDS ORDERED: VANCOMYCIN OPHTHALMI 8MG/0.8ML 8 MG/0.8 ML SYRINGE IO ONE ×2 (07:12→07:22)
[2020-09-20] MEDS ORDERED: TIMOLOL 0.5% OPHTH DROPS ONE (07:12)
[2020-09-20] MEDS ORDERED: MIDAZOLAM 2 MG/2 ML VIAL ONE (07:19)
[2020-09-20] MEDS ORDERED: BSS/LIDOCAINE/EPINEPHRINE 1 ML SYRINGE IO ONE (07:22)
[2020-09-20] MEDS ORDERED: BRIMONIDINE 0.2% OPHTH DROPS 5 ML OPTH ONE (07:22)
[2020-09-20] MEDS ORDERED: PROPARACAINE 0.5% OPHTH DROPS 15 ML EACHEYE ONE (07:22)
[2020-09-20] MEDS ORDERED: CHONDR SULF/HYALURONATE SYRINGE IO ONE (07:22)
[2020-09-20] MEDS ORDERED: TIMOLOL 0.5% OPHTH DROPS OPTH ONE (07:22)
[2020-09-20] MEDS ORDERED: EPINEPHrine 1 MG/ML AMP IR ONE (07:22)
[2020-09-20 07:49] VITALS: BP 149/63
--- NOTE | 2020-09-20 08:03 | OPERATIVE REPORT ---
DATE OF SERVICE: 09/20/2020 Physician: Akbar Linares MD PREOPERATIVE DIAGNOSIS: Visually significant cataract, right eye. This was her first cataract surge ry. POSTOPERATIVE DIAGNOSIS: Visually significant cataract, right eye. This was her first cataract surg radha. PROCEDURE: Phacoemulsification with posterior chamber intraocular lens implant, right eye. SURGEON: Akbar Linares MD ANESTHESIA: Monitored anesthesia care. COMPLICATIONS: None. OPERATIVE INDICATIONS: This is a 80-year-old woman with progressive vision loss in the right eye due to 2-3+ nuclear sclerotic and 1+ cortical cataract. Best corrected visual acuity was 20/30, with gl are to 20/60 in the right eye. Indications for surgery are overall decrease in vision, difficulty se eing words on a computer screen, difficulty seeing street signs, difficulty driving in low light or a t night, difficulty driving at night because of headlights from other vehicles, and difficulty with g lare or bright lights in any situation. She was consented at length concerning risks and benefits of cataract surgery, after which she expressed a desire to proceed with surgery. OPERATIVE PROCEDURE: The patient was taken to OR #3 and placed under monitored anesthesia care. A s urgical timeout was conducted, confirming correct patient, correct procedure, and correct surgical si te. She was given topical anesthesia, and prepped and draped in the usual sterile fashion. The eye was entered at the 12 and 9 o'clock positions. Intracameral Shugarcaine was injected into the anteri or chamber, followed by Viscoat. A continuous-tear curvilinear capsulorrhexis was performed. The nu cleus was hydrodissected and phacoemulsified. The cortex was evacuated using automated infusion and aspiration. Provisc was injected in the capsular bag, and a 22.5 diopter intraocular lens was insert ed into the bag. Infusion and aspiration were used to evacuate the viscoelastic materials. The eye was inflated to a physiologic pressure using balanced salt solution and found to be watertight. Appr oximately 0.25 mL mixture of triamcinolone and moxifloxacin was injected transsclerally into the vitr eous in inferotemporal quadrant. An additional 0.55 mL of a mixture of triamcinolone, moxifloxacin, and vancomycin was injected subconjunctivally in the superior quadrant for infection and inflammation prophylaxis. Wound integrity was checked with Weck-Samira sponges. The patient was taken from the op erating room in good condition and given postoperative instructions. TD: 09/20/2020 07:48
--- NOTE | 2020-09-20 08:22 | ANESTHESIA POST OP EVALUATION ---
Anesthesia Post Eval - Post Anesthesia Eval Vitals: Last Vital Signs Temp 36.4 C L 09/20/20 07:38 Pulse 67 09/20/20 07:48 Resp 18 09/20/20 07:48 BP 149/63 H 09/20/20 07:48 Pulse Ox 99 09/20/20 07:48 CV Function Including HR & BP: positive: Stable Pain Control: positive: Satisfactory Nausea & Vomiting: positive: Negative Mental Status: positive: Baseline Respiratory Status: Airway Patent Hydration Status: Satisfactory Anesthesia Complications: positive: None
== END 2020-09-20 06:21 | disposition home or self-care (01) ==
LOC: SDS 06:20
PROVIDERS: ATTEND Ophthalmology
DX: H25.811 Combined forms of age-related cataract, right eye (principal); I48.91 Unspecified atrial fibrillation; E03.9 Hypothyroidism, unspecified; J43.9 Emphysema, unspecified; F41.9 Anxiety disorder, unspecified
CPT/HCPCS: 66984; A9270; J3490; J7120; V2632

== ENCOUNTER 2020-12-10 17:01 | Outpatient (CLI) | payer MEDICARE, OTHER | END 2020-12-10 17:02 | disposition home or self-care (01) | LOC: COV 17:01 | PROVIDERS: ATTEND Ophthalmology | DX: Z01.812 Encounter for preprocedural laboratory examination (principal); H25.812 Combined forms of age-related cataract, left eye; Z20.822 Contact with and (suspected) exposure to COVID-19 ==

== ENCOUNTER 2020-12-13 08:24 | Day surgery (SDC) | payer MEDICARE, OTHER ==
[~2020-12-13 08:24] MED LIST: KETOROLAC 0.45% OPHTH DROPS ONE; PROPARACAINE 0.5% OPHTH DROPS 15 ML ONE
[2020-12-13] MEDS ORDERED: LACTATED RINGERS 500 ML IV ONE (08:57)
[2020-12-13] MEDS ORDERED: KETOROLAC 0.45% OPHTH DROPS LEFTEYE ONE (08:59)
[2020-12-13] MEDS ORDERED: PROPARACAINE 0.5% OPHTH DROPS 15 ML LEFTEYE ONE (08:59)
[2020-12-13] MEDS ORDERED: PHENYLEPHRINE 2.5% OPHTH 2 ML DROPS LEFTEYE ONE (09:00)
[2020-12-13] MEDS ORDERED: CYCLOPENTOLATE 1% OPHTH DROPS 2 ML LEFTEYE ONE (09:00)
[2020-12-13] MEDS ORDERED: EPINEPHrine 1 MG/ML AMP ONE (09:02)
[2020-12-13] MEDS ORDERED: TRIAMCIN/MOXIFLOX OPHTHALMIC 0.6 ML VIAL IO ONE ×2 (09:02→09:27)
[2020-12-13] MEDS ORDERED: VANCOMYCIN OPHTHALMI 8MG/0.8ML 8 MG/0.8 ML SYRINGE IO ONE ×2 (09:03→09:28)
[2020-12-13] MEDS ORDERED: BSS/LIDOCAINE/EPINEPHRINE 1 ML SYRINGE ONE (09:03)
[2020-12-13] MEDS ORDERED: TIMOLOL 0.5% OPHTH DROPS ONE (09:03)
[2020-12-13] MEDS ORDERED: BRIMONIDINE 0.2% OPHTH DROPS 5 ML ONE (09:03)
--- NOTE | 2020-12-13 09:15 | ANESTHESIA ---
Pre-Anesthesia VS, & Labs - Diagnosis left senile cataract - Procedure left cataract extraction with IOL Vital Signs: Temp Pulse Resp BP Pulse Ox 37 C 70 16 144/53 H 97 12/13/20 08:41 12/13/20 08:41 12/13/20 08:41 12/13/20 08:41 12/13/20 08:41 Height: 5 ft 3 in Weight (kg): 49.8 kg Body Mass Index: 19.4 BMI Classification: Healthy weight - NPO >8 hours - Is Patient ?: No Home Medications and Allergies Albuterol Sulfate [Proair Hfa] 2 puffs IH Q4H PRN 06/23/13 Levothyroxine [Synthroid] 50 mcg PO DAILY 06/23/13 Fluticasone/Salmeterol 250/50 [Advair 250 Mcg/50 Mcg] 1 puffs INH BID 01/25/16 Metoprolol Tartrate [Lopressor] 12.5 mg PO DAILY 02/01/16 Losartan [Cozaar] 25 mg PO DAILY 11/16/18 Diltiazem HCl [Diltiazem 12Hr ER] 120 mg PO DAILY 09/19/20 LORazepam [Ativan] 0.5 mg PO BID 09/19/20 Allergies/Adverse Reactions: Allergies Allergy/AdvReac Type Severity Reaction Status Date / Time iodine Allergy Severe Anaphylaxis Verified 09/20/20 06:42 penicillin V potassium * Allergy Severe Edema Verified 09/20/20 06:42 [From Pen-Vee K] pseudoephedrine Allergy Severe Unknown Verified 09/20/20 06:42 alendronate sodium Allergy Intermediate unknown Verified 09/20/20 06:42 [From Fosamax] ephedrine [Ephedrine] Allergy Intermediate Unknown Verified 09/20/20 06:42 metronidazole [From Flagyl] Allergy Intermediate Emesis Verified 09/20/20 06:42 Metronidazole HCl * Allergy Intermediate Emesis Verified 09/20/20 06:42 [From Flagyl] Anes History & Medical History - Anesthetic History Anesthesia Complications: reports: No previous complications - Medical History Cardiovascular: reports: Hypertension, High cholesterol, Arrhythmia (atrial fib) Pulmonary: reports: COPD, Emphysema Gastrointestinal: reports: GERD Urinary: reports: Kidney stones, Other Neuro: reports: None Musculoskeletal: reports: Osteoporosis, Osteopenia Endocrine/Autoimmune: reports: HyPOthyroidism Blood Disorders: reports: None Skin: reports: Eczema Smoking Status: Never smoker History of Cancer?: Yes (breast) - Surgical History General: reports: Cholecystectomy, Colonoscopy, EGD Urologic: reports: Ureterolithotomy (stones) Gynecologic: reports: Hysterectomy, Other (lumpectomy for breast CA on right) Exam General: Alert Dental: WNL Mouth Opening: Greater than 4 Fingerbreadths Neck Mobility: Normal Mallampati classification: II Thyromental Distance: greater than 6 cm Respiratory: Lungs clear Cardiovascular: Other (irregular) Plan Anesthesia Type: MAC Consent for Procedure(s) Verified and Reviewed: Yes Code Status: Attempt Resuscitation ASA classification: 3-Severe systemic disease Is this case an emergency?: Yes
[2020-12-13] MEDS ORDERED: MIDAZOLAM 2 MG/2 ML VIAL ONE (09:20)
[2020-12-13] MEDS ORDERED: EPINEPHrine 1 MG/ML AMP IR ONE (09:26)
[2020-12-13] MEDS ORDERED: CHONDR SULF/HYALURONATE SYRINGE IO ONE (09:26)
[2020-12-13] MEDS ORDERED: BRIMONIDINE 0.2% OPHTH DROPS 5 ML OPTH ONE (09:26)
[2020-12-13] MEDS ORDERED: TIMOLOL 0.5% OPHTH DROPS OPTH ONE (09:27)
[2020-12-13] MEDS ORDERED: BSS/LIDOCAINE/EPINEPHRINE 1 ML SYRINGE IO ONE (09:27)
[2020-12-13] MEDS ORDERED: PROPARACAINE 0.5% OPHTH DROPS 15 ML EACHEYE ONE (09:28)
[2020-12-13] MEDS ORDERED: LACTATED RINGERS 400 ML IV ONE (09:47)
--- NOTE | 2020-12-13 10:13 | ANESTHESIA POST OP EVALUATION ---
Anesthesia Post Eval - Post Anesthesia Eval Vitals: Last Vital Signs Temp 36.5 C 12/13/20 09:47 Pulse 63 12/13/20 09:47 Resp 19 12/13/20 09:47 BP 148/66 H 12/13/20 09:47 Pulse Ox 100 12/13/20 09:47 CV Function Including HR & BP: Stable Pain Control: Satisfactory Nausea & Vomiting: Negative Mental Status: Baseline Respiratory Status: Airway Patent Hydration Status: Satisfactory Anesthesia Complications: None
[2020-12-13 10:17] VITALS: BP 135/74
--- NOTE | 2020-12-13 11:27 | OPERATIVE REPORT ---
Operative Report - Other Other Information/Narrative: Date of Surgery: 12/13/20 Preop Dx: Visually significant cataract left eye. Cataract surgery was performed in the right eye on 09/20/2020. Postop Dx: Same Procedure: Phacoemulsification with posterior chamber intraocular lens implant left eye Surgeon: Dr. Akbar Linares Anesthesia: Monitored anesthesia care Complications: None Operative Indications: This is a 80-year-old F with progressive vision loss in the left eye due to 2-3+ nuclear sclerotic, and 2+ cortical cataract. Best corrected visual acuity was 20/25 with glare to 20/30 vision in the left eye. Indications for surgery were: - Difficulty seeing words on a computer screen - Difficulty reading - Difficulty seeing words, closed captions, or game scores on TV - Difficulty seeing street signs - Difficulty driving at night because of headlights from other vehicles The patient was consented at length concerning the risks and benefits of cataract surgery after which the patient expressed a desire to proceed with surgery. Operative Procedure: The patient was taken into OR#3 and placed under monitored anesthesia care. A surgical time-out was conducted confirming correct patient, correct procedure, and correct surgical site. The patient was given topical anesthesia and then prepped and draped in the usual sterile fashion. The eye was entered at the 6 and 3 oclock positions. Intracameral Shugarcaine was injected into the anterior chamber followed by a dispersive viscoelastic. A continuous-tear curvilinear capsulorhexis was performed. The nucleus was hydrodissected and phacoemulsified. The cortex was evacuated using automated infusion and aspiration. A cohesive viscoelastic was injected into the capsular bag and a 22.5 diopter intraocular lens was inserted into the bag. Infusion and aspiration were used to evacuate the viscoelastic materials from the eye. The wounds were hydrated and the eye inflated to physiologic pressure using balanced salt solution. Approximately 0.25ml of a mixture of triamcinolone and moxifloxacin was injected trans-sclerally into the vitreous in the inferotemporal quadrant using a 30 gauge cannula. An additional 0.55ml of a mixture of triamcinolone, moxifloxacin, and vancomycin was injected subconjunctivally in the superior quadrant for infection and inflammation prophylaxis. Wound integrity was checked with Weck-Samira sponges. The patient was taken from the operating room in good condition and given post-op instructions.
== END 2020-12-13 08:25 | disposition home or self-care (01) ==
LOC: SDS 08:24
PROVIDERS: ATTEND Ophthalmology
DX: H25.812 Combined forms of age-related cataract, left eye (principal); I10 Essential (primary) hypertension; I48.91 Unspecified atrial fibrillation; J43.9 Emphysema, unspecified; E03.9 Hypothyroidism, unspecified; E78.00 Pure hypercholesterolemia, unspecified; K21.9 Gastro-esophageal reflux disease without esophagitis; M81.0 Age-related osteoporosis without current pathological fracture; Z79.51 Long term (current) use of inhaled steroids; Z79.899 Other long term (current) drug therapy
CPT/HCPCS: 66984; A9270; J3490; J7120; V2632

== ENCOUNTER 2021-05-10 09:20 | Outpatient (CLI) | payer MEDICARE, OTHER ==
[2021-05-10 12:10] LABS: BASOPHILS % (AUTO) 0.8 %; EOSINOPHILS # (AUTO) 0.1 10^3/uL (0.0-0.7); EOSINOPHILS % (AUTO) 2.5 %; HCT - HEMATOCRIT 41.1 % (37.0-47.0); HGB - HEMOGLOBIN 13.4 g/dL (12.0-16.0); LYMPHOCYTES # (AUTO) 1.3 10^3/uL (1.5-3.5); LYMPHOCYTES % (AUTO) 24.9 %; MEAN CORPUSCULAR HEMOGLOBIN 30.5 pg (27.0-31.0); MEAN CORPUSCULAR HGB CONC 32.6 g/dL (32.0-36.0); MEAN CORPUSCULAR VOLUME 93.4 fL (81.0-99.0); MONOCYTES # (AUTO) 0.5 10^3/uL (0.0-1.0); MONOCYTES % (AUTO) 9.1 %; NEUTROPHILS # (AUTO) 3.3 10^3/uL (1.5-6.6); NEUTROPHILS % (AUTO) 62.3 %; PLT - PLATELET COUNT 210 10^3/uL (130-450); RED CELL DISTRIBUTION WIDTH 13.2 % (12.0-15.0); WHITE BLOOD COUNT 5.3 x10^3/uL (4.8-10.8)
[2021-05-10 12:40] LABS: THYROID STIMULATING HORMONE 4.15 uIU/mL (0.34-5.60)
== END 2021-05-10 23:59 | disposition home or self-care (01) ==
LOC: LAB.WCP 09:20
PROVIDERS: ATTEND Family Medicine
DX: R53.83 Other fatigue (principal)
CPT/HCPCS: 36415; 84443; 85025

== ENCOUNTER 2021-07-04 09:42 | Outpatient (CLI) | payer MEDICARE, OTHER ==
--- NOTE | 2021-07-05 10:17 | Mammography Report ---
BILATERAL DIGITAL DIAGNOSTIC MAMMOGRAM 3D/2D: 07/04/2021 CLINICAL: Occasional left breast pain. Comparison is made to exams dated: 06/14/2020 mammogram, 06/16/2019 mammogram, 04/21/2018 mammogram, 06/29/2017 mammogram, 05/22/2016 mammogram, and 05/04/2015 mammogram - [facility]. The tissue of both breasts is heterogeneously dense. This may lower the sensitivity of mammography. No significant new masses, calcifications, or other findings are seen in either breast. IMPRESSION: NEGATIVE There is no abnormality seen in the left breast to correspond with the diffuse pain, however, clinica l followup is recommended. There is no mammographic evidence of malignancy. A 1 year screening mammogram is recommended. This exam was interpreted at Station ID: [id number]. NOTE: For mammograms, a report in lay terms will be sent to the patient. Approximately 15% of breast malignancies will not be visualized mammographically. In the management of a palpable breast mass, a negative mammogram must not discourage biopsy of a clinically suspicious lesion. Electronically Signed By: Arcenio Justin M.D. ddp/:07/04/2021 10:43:45 ACR BI-RADS Category 1: Negative 3341F PARENCHYMAL PATTERN: (D) - The breast(s) demonstrate(s) heterogeneously dense fibroglandular partoniay ma. BI-RADS CATEGORY: (1) - 1 RECOMMENDATION: (ANNUAL) - Recommend routine annual screening mammography. [id number] 1 year screening LATERALITY: (B)
== END 2021-07-04 09:43 | disposition home or self-care (01) ==
LOC: DI 09:42
PROVIDERS: ATTEND Family Medicine
DX: N64.4 Mastodynia (principal)

== ENCOUNTER 2021-08-14 08:00 | Outpatient (CLI) | payer MEDICARE, OTHER ==
[2021-08-14 18:21] LABS: BASOPHILS % (AUTO) 0.5 %; EOSINOPHILS # (AUTO) 0.1 10^3/uL (0.0-0.7); HCT - HEMATOCRIT 39.1 % (37.0-47.0); LYMPHOCYTES # (AUTO) 1.3 10^3/uL (1.5-3.5); LYMPHOCYTES % (AUTO) 20.3 %; MEAN CORPUSCULAR HEMOGLOBIN 30.6 pg (27.0-31.0); MEAN CORPUSCULAR HGB CONC 33.2 g/dL (32.0-36.0); MEAN PLATELET VOLUME 10.2 fL (7.9-10.8); MONOCYTES # (AUTO) 0.5 10^3/uL (0.0-1.0); MONOCYTES % (AUTO) 8.4 %; NEUTROPHILS # (AUTO) 4.4 10^3/uL (1.5-6.6); NEUTROPHILS % (AUTO) 69.6 %; PLT - PLATELET COUNT 215 10^3/uL (130-450); RED BLOOD COUNT 4.25 10^6/uL (4.20-5.40); RED CELL DISTRIBUTION WIDTH 13.2 % (12.0-15.0); WHITE BLOOD COUNT 6.3 x10^3/uL (4.8-10.8)
[2021-08-14 18:46] LABS: THYROID STIMULATING HORMONE 2.89 uIU/mL (0.34-5.60)
[2021-08-14 18:51] LABS: ALBUMIN 4.1 g/dL (3.2-5.5); ALBUMIN/GLOBULIN RATIO 1.2 (1.0-2.2); ALKALINE PHOSPHATASE 38 IU/L (42-121); ALT ALANINE AMINOTRANSFERASE 23 IU/L (10-60); AST ASPARTATE AMINOTRANSFERASE 25 IU/L (10-42); BILIRUBIN,TOTAL 0.6 mg/dL (0.2-1.0); BUN - BLOOD UREA NITROGEN 19 mg/dL (6-20); CALCIUM 9.9 mg/dL (8.5-10.3); CARBON DIOXIDE - CO2 27 mmol/L (21-32); CHLORIDE 96 mmol/L (101-111); CHOL/HDL RATIO 2.8 (<4.4); CHOLESTEROL 222 mg/dL; CREATININE 0.9 mg/dL (0.4-1.0); GFR - MDRD 60 (>89); GLUCOSE 100 mg/dL (70-100); HDL CHOLESTEROL 80 mg/dL; LDL CHOLESTEROL,CALCULATED 127 mg/dL; LDL/HDL RATIO 1.6 (<4.4); POTASSIUM 4.3 mmol/L (3.5-5.0); SODIUM 131 mmol/L (135-145); TOTAL PROTEIN 7.6 g/dL (6.7-8.2); TRIGLYCERIDES 75 mg/dL; VLDL CHOLESTEROL 15 mg/dL
== END 2021-08-14 23:59 ==
LOC: LAB.WCP 08:00
PROVIDERS: ATTEND Family Medicine
DX: I10 Essential (primary) hypertension (principal); E78.5 Hyperlipidemia, unspecified; E04.1 Nontoxic single thyroid nodule
CPT/HCPCS: 36415; 80053; 80061; 83721; 84443; 85025; 86376; 86800

== ENCOUNTER 2021-08-22 14:45 | Outpatient (CLI) | payer MEDICARE, OTHER ==
--- NOTE | 2021-08-23 09:54 | Ultrasound Report ---
PROCEDURE: Head or Neck Soft Tissue INDICATIONS: THYROID NODULE TECHNIQUE: Real time scanning was performed of the neck region of interest, with image documentation . COMPARISON: 11/30/2017 FINDINGS: The right thyroid measures 3.5 x 0.9 x 1.1 cm. The left thyroid measures 3.8 x 1.4 x 1.5 cm . The contour of both lobes is slightly lobulated and internal echotexture is mildly heterogeneous. T he isthmus is 1 mm in thickness. In the upper pole of the left thyroid lobe, there is an indistinct, heterogeneous solid nodule measur ing 0.7 x 0.6 x 1.0 cm. A separate from this nodule is an isolated macrocalcification in the mid left thyroid gland. There are no new nodules. IMPRESSION: 1. Indistinct, relatively stable size of left thyroid nodule and a diminutive, heterogeneous gland. T here is been little change compared to the prior study. Reviewed by: Carina Chavez MD on 08/23/2021 9:52 AM PST Approved by: Carina Chavez MD on 08/23/2021 9:52 AM PST Station ID: [id number]
== END 2021-08-22 14:46 | disposition home or self-care (01) ==
LOC: DI 14:45
PROVIDERS: ATTEND Family Medicine
DX: E04.1 Nontoxic single thyroid nodule (principal)

== ENCOUNTER 2021-09-09 12:10 | Emergency (ER) | payer MEDICARE, OTHER ==
[2021-09-09 13:15] LABS: BASOPHILS % (AUTO) 0.3 %; EOSINOPHILS % (AUTO) 0.3 %; HGB - HEMOGLOBIN 12.7 g/dL (12.0-16.0); LYMPHOCYTES # (AUTO) 0.6 10^3/uL (1.5-3.5); MEAN CORPUSCULAR HEMOGLOBIN 30.8 pg (27.0-31.0); MEAN CORPUSCULAR HGB CONC 34.3 g/dL (32.0-36.0); MEAN CORPUSCULAR VOLUME 89.6 fL (81.0-99.0); MEAN PLATELET VOLUME 9.1 fL (7.9-10.8); MONOCYTES # (AUTO) 0.5 10^3/uL (0.0-1.0); MONOCYTES % (AUTO) 7.1 %; NEUTROPHILS # (AUTO) 5.2 10^3/uL (1.5-6.6); PLT - PLATELET COUNT 171 10^3/uL (130-450); RED BLOOD COUNT 4.13 10^6/uL (4.20-5.40); RED CELL DISTRIBUTION WIDTH 13.4 % (12.0-15.0); WHITE BLOOD COUNT 6.3 x10^3/uL (4.8-10.8)
--- NOTE | 2021-09-09 13:33 | XRAY Report ---
PROCEDURE: Chest 1 View X-Ray INDICATIONS: Chest Pain TECHNIQUE: One view of the chest was acquired. COMPARISON: Chest x-ray 02/23/2018 FINDINGS: Surgical changes and devices: None. Lungs and pleura: No pleural effusions or pneumothorax. There is persistent streaky opacity within t he right upper lobe unchanged since 2015. Lungs are hyperinflated secondary to COPD. Mediastinum: Mediastinal contours appear normal. Heart size is normal. Bones and chest wall: No suspicious bony lesions. Overlying soft tissues appear unremarkable. IMPRESSION: No acute pulmonary process. Reviewed by: Manda Millard MD on 09/09/2021 1:31 PM PST Approved by: Manda Millard MD on 09/09/2021 1:31 PM PST Station ID: [id number]
[2021-09-09 13:38] LABS: ALBUMIN 3.9 g/dL (3.2-5.5); ALBUMIN/GLOBULIN RATIO 1.3 (1.0-2.2); BILIRUBIN,TOTAL 0.9 mg/dL (0.2-1.0); CALCIUM 9.1 mg/dL (8.5-10.3); CREATININE 0.9 mg/dL (0.4-1.0); POTASSIUM 4.1 mmol/L (3.5-5.0)
--- NOTE | 2021-09-09 14:29 | ED Physician Documentation ---
PD HPI HEAD INJURY - Stated complaint Stated Complaint: HEAD INJURY - Chief complaint Chief Complaint: Trauma Hd/Nk - History obtained from History obtained from: Patient - Additional information Additional information: Pt comes to the ED with CC of fall yesterday. She thinks she may have had a syncopal episode preceding the fall, but isn't really sure, because she also hit her head. The pt is not anticoagulated. She has felt fine since, other than some soreness over her R anterior chest wall and a bruise and some soreness over her R eye. She states it hurts when she moves the R chest/upper extremity, and feels as though she hit her chest when she went down. No focal neurologic deficits. No dizziness. No feeling of lightheadedness. Pt did not at any point have shortness of breath or chest pain. No N/V. She has not had fevers or other signs of illness. No palpitations. Pt has a h/o HTN, high cholesterol, a. fib, and COPD. Pt was sent here from urgent care. Review of Systems Ten Systems: 10 systems reviewed and negative Constitutional: reports: Reviewed and negative Eyes: reports: Reviewed and negative Ears: reports: Reviewed and negative Nose: reports: Reviewed and negative Throat: reports: Reviewed and negative Cardiac: reports: Chest pain / pressure Respiratory: reports: Reviewed and negative GI: reports: Reviewed and negative : reports: Reviewed and negative Skin: reports: Reviewed and negative Musculoskeletal: reports: Reviewed and negative Neurologic: reports: Head injury Psychiatric: reports: Reviewed and negative Endocrine: reports: Reviewed and negative Immunocompromised: reports: Reviewed and negative PD PAST MEDICAL HISTORY - Past Medical History Cardiovascular: Hypertension, High cholesterol, Arrhythmia (atrial fib) Respiratory: COPD, Emphysema Neuro: None Endocrine/Autoimmune: HyPOthyroidism GI: GERD : Kidney stones, Other HEENT: None Psych: Anxiety Musculoskeletal: Osteoporosis, Osteopenia Derm: Eczema - Past Surgical History Past Surgical History: Yes General: Cholecystectomy, Colonoscopy, EGD /[employer]ICE [employer]IDENT [employer]ING: Hysterectomy, Other (lumpectomy for breast CA on right) - Present Medications Home Medications: Ambulatory Orders Medication Instructions Recorded Confirmed Albuterol Sulfate [Proair Hfa] 2 puffs IH Q4H PRN 06/23/13 12/12/20 Levothyroxine [Synthroid] 50 mcg PO DAILY 06/23/13 12/12/20 Fluticasone/Salmeterol 250/50 1 puffs INH BID 01/25/16 12/13/20 [Advair 250 Mcg/50 Mcg] Metoprolol Tartrate [Lopressor] 12.5 mg PO DAILY 02/01/16 12/13/20 Losartan [Cozaar] 25 mg PO DAILY 11/16/18 12/13/20 Diltiazem HCl [Diltiazem 12Hr ER] 120 mg PO DAILY 09/19/20 12/13/20 LORazepam [Ativan] 0.5 mg PO BID 09/19/20 12/13/20 HYDROcod/ACETAM 5/325 [[place] 5/325] 1 - 2 tablet PO Q6H PRN #10 tablet 09/09/21 - Allergies Allergies/Adverse Reactions: Allergies Allergy/AdvReac Type Severity Reaction Status Date / Time iodine Allergy Severe Anaphylaxis Verified 09/09/21 12:13 penicillin V potassium * Allergy Severe Edema Verified 09/09/21 12:13 [From Pen-Vee K] pseudoephedrine Allergy Severe Unknown Verified 09/09/21 12:13 alendronate sodium Allergy Intermediate unknown Verified 09/09/21 12:13 [From Fosamax] ephedrine [Ephedrine] Allergy Intermediate Unknown Verified 09/09/21 12:13 metronidazole [From Flagyl] Allergy Intermediate Emesis Verified 09/09/21 12:13 Metronidazole HCl * Allergy Intermediate Emesis Verified 09/09/21 12:13 [From Flagyl] - Social History Does the pt smoke?: No Smoking Status: Never smoker Does the pt drink ETOH?: No Does the pt have substance abuse?: No - Immunizations Immunizations are current?: No Immunizations: TDAP >10years/unknown - POLST Patient has POLST: No PD ED PE NORMAL - Vitals Vital signs reviewed: Yes - General General: Alert and oriented X 3, No acute distress, Well developed/nourished - HEENT HEENT: PERRL, EOMI, Moist mucous membranes, Other (R periorbital contusion. No step-off or depression. ) - Neck Neck: Supple, no meningeal sign, No bony TTP - Cardiac Cardiac: RRR, No murmur, Strong equal pulses - Respiratory Respiratory: No respiratory distress, Clear bilaterally - Abdomen Abdomen: Soft, Non tender, Non distended - Back Back: No spinal TTP - Derm Derm: Warm and dry, No rash, Other (periorbital contusion, o/w normal color.) - Extremities Extremities: No deformity - Neuro Neuro: Alert and oriented X 3, integrated marketing manager 2-12 intact, No motor deficit, No sensory deficit, Normal speech - Psych Psych: Normal mood, Normal affect PD ED PE EXPANDED - Free text exam Free text exam: The pt was well-appearing in the ED, and had not developed any worrisome symptoms after hitting her head over 24 hours ago. Additionally, she had not had any sx of lightheadedness since the incident. Pt was worked up with labs, EKG, and CXR, with no significant findings. Results - Vitals Vitals: Oxygen O2 Source Room air - EKG (time done) 1216 Rate: Rate (enter#) (86) Rhythm: NSR [place]: Normal Intervals: Normal [place] QRS: Normal Ischemia: Normal ST segments, Non specific changes Other comments: Other comments (PVCs) Compare to prior EKG: Old EKG unavailable - Labs Labs: Laboratory Tests 09/09/21 09/09/21 09/09/21 13:09 13:09 13:09 WBC 6.3 RBC 4.13 L Hgb 12.7 Hct 37.0 MCV 89.6 MCH 30.8 MCHC 34.3 RDW 13.4 Plt Count 171 MPV 9.1 Neut # (Auto) 5.2 Lymph # (Auto) 0.6 L [place] # (Auto) 0.5 Eos # (Auto) 0.0 Baso # (Auto) 0.0 Absolute Nucleated RBC 0.00 Nucleated RBC % 0.0 Sodium 122 L Potassium 4.1 Chloride 91 L Carbon Dioxide 21 Anion Gap 10.0 BUN 13 Creatinine 0.9 Estimated GFR (MDRD) 60 L Glucose 104 H Calcium 9.1 Total Bilirubin 0.9 AST 20 ALT 18 Alkaline Phosphatase 39 L Troponin I High Sens 4.9 Total Protein 7.0 Albumin 3.9 Globulin 3.1 Albumin/Globulin Ratio 1.3 Lipase 30 - Rads (name of study) CXR Radiology: Final report received, EMP read indepedently, See rad report (nad) PD MEDICAL DECISION MAKING - ED course Complexity details: reviewed results, re-evaluated patient, considered differential, d/w patient ED course: Pt was worked up with labs, CXR, and EKG, with no significant findings. She was very well-appearing, and it had been 24 hours since her injury/episode with no further sx afterward. Pt was not anticoagulated. As such, I did not feel brain imaging was indicated at this time. We have discussed the usual indications for return, and the need for follow-up. Departure - Departure Disposition: 01 Home, Self Care Clinical Impression: Fall from ground level Contusion of rib on right side Qualifiers: Encounter type: initial encounter Qualified Code(s): S20.211A - Contusion of right front wall of thorax, initial encounter Closed head injury Qualifiers: Encounter type: initial encounter Qualified Code(s): S09.90XA - Unspecified injury of head, initial encounter Episode of syncope Qualifiers: Syncope type: unspecified Qualified Code(s): R55 - Syncope and collapse Condition: Stable Instructions: ED Head Injury Closed, ED Contusion Rib Prescriptions: HYDROcod/ACETAM 5/325 [[place] 5/325] 1 - 2 tablet PO Q6H PRN #10 tablet PRN Reason: Pain Comments: Your work-up overall looks good. Since it has been 24 hours since her fall, the fact that you are not having any concerning neurologic symptoms makes it unlikely that you have any bleeding in your brain, and as such, there is no clear indication at this point to get a CT scan. Your prescription has been electronically transmitted to [facility] in [place]. Discharge Date/Time: 09/09/21 15:00
[2021-09-09 15:00] VITALS: BP 181/79
== END 2021-09-09 15:00 | disposition home or self-care (01) ==
LOC: ED 12:10
DX: S20.211A Contusion of right front wall of thorax, initial encounter (principal); S09.90XA Unspecified injury of head, initial encounter; W19.XXXA Unspecified fall, initial encounter; I10 Essential (primary) hypertension
CPT/HCPCS: 36415; 80053; 83690; 84484; 85025; 93005; 99284

== ENCOUNTER 2021-09-18 10:09 | Outpatient (CLI) | payer MEDICARE, OTHER | END 2021-09-18 10:10 | disposition critical access hospital (66) | LOC: EMS 10:09 | DX: R07.89 Other chest pain (principal); R05.9 Cough, unspecified; R19.7 Diarrhea, unspecified; Z91.81 History of falling | CPT/HCPCS: A0425; A0429 ==

== ENCOUNTER 2021-09-18 10:38 | Emergency (ER) | payer MEDICARE, OTHER ==
[2021-09-18] MEDS ORDERED: DEXAMETHASONE 10 MG/ML VIAL IVP STA (11:22)
[2021-09-18] MEDS ORDERED: KETOROLAC 30 MG/ML VIAL IVP STA (11:22)
--- NOTE | 2021-09-18 11:31 | ED Physician Documentation ---
PD HPI CHEST PAIN - Stated complaint Stated Complaint: CP - Chief complaint Chief Complaint: General - History obtained from History obtained from: Patient - History of Present Illness Timing - onset: How many days ago (10) Timing - onset during: Rest Timing - duration: Days (10) Timing - details: Abrupt onset, Still present Quality: Sharp, Pain Location: Right chest Radiation: Back Improved by: Rest Worsened by: Exertion, Inspiration, Movement, Palpation, Position Associated symptoms: Shortness of air. No: Nausea, Vomiting, Feeling faint / dizzy Similar symptoms before: Diagnosis (chest wall contusion) Recently seen: Emergency Dept - Additional information Additional information: 81-year-old female had a collapse and fall injuring the right periorbital tissues and her right anterior chest wall. Her chest wall pain was not exquisite initially and this got worse over time she has been taking some pain medication for this and now she is having some difficulty breathing even. She is come back to the emergency department for further evaluation at the instruction of her primary care doctor. Review of Systems Constitutional: denies: Fever Eyes: denies: Decreased vision Ears: denies: Ear pain Nose: denies: Congestion Throat: denies: Sore throat Cardiac: reports: Chest pain / pressure. denies: Palpitations, Pedal edema, Calf pain Respiratory: reports: Dyspnea. denies: Cough, Wheezing GI: denies: Abdominal Pain, Nausea, Vomiting, Constipation, Diarrhea : denies: Dysuria, Frequency PD PAST MEDICAL HISTORY - Past Medical History Past Medical History: Yes Cardiovascular: Hypertension, High cholesterol, Arrhythmia Respiratory: COPD, Emphysema Neuro: None Endocrine/Autoimmune: HyPOthyroidism GI: GERD : Kidney stones, Other HEENT: None Psych: Anxiety Musculoskeletal: Osteoporosis, Osteopenia Derm: Eczema - Past Surgical History Past Surgical History: Yes General: Cholecystectomy, Colonoscopy, EGD /SENIOR CORPORATE STRATEGY MANAGER: Hysterectomy, Other - Present Medications Home Medications: Ambulatory Orders Medication Instructions Recorded Confirmed Albuterol Sulfate [Proair Hfa] 2 puffs IH Q4H PRN 06/23/13 12/12/20 Levothyroxine [Synthroid] 50 mcg PO DAILY 06/23/13 12/12/20 Fluticasone/Salmeterol 250/50 1 puffs INH BID 01/25/16 12/13/20 [Advair 250 Mcg/50 Mcg] Metoprolol Tartrate [Lopressor] 12.5 mg PO DAILY 02/01/16 12/13/20 Losartan [Cozaar] 25 mg PO DAILY 11/16/18 12/13/20 Diltiazem HCl [Diltiazem 12Hr ER] 120 mg PO DAILY 09/19/20 12/13/20 LORazepam [Ativan] 0.5 mg PO BID 09/19/20 12/13/20 HYDROcod/ACETAM 5/325 [Ackerly 5/325] 1 - 2 tablet PO Q6H PRN #10 tablet 09/09/21 HYDROcod/ACETAM 5/325 [Ackerly 5/325] 1 - 2 tablet PO Q6H PRN #20 tablet 09/18/21 Ondansetron Odt [Zofran] 4 mg TL Q6H PRN #20 tablet 09/18/21 - Allergies Allergies/Adverse Reactions: Allergies Allergy/AdvReac Type Severity Reaction Status Date / Time iodine Allergy Severe Anaphylaxis Verified 09/18/21 10:49 penicillin V potassium * Allergy Severe Edema Verified 09/18/21 10:49 [From Pen-Vee K] pseudoephedrine Allergy Severe Unknown Verified 09/18/21 10:49 alendronate sodium Allergy Intermediate unknown Verified 09/18/21 10:49 [From Fosamax] ephedrine [Ephedrine] Allergy Intermediate Unknown Verified 09/18/21 10:49 metronidazole [From Flagyl] Allergy Intermediate Emesis Verified 09/18/21 10:49 Metronidazole HCl * Allergy Intermediate Emesis Verified 09/18/21 10:49 [From Flagyl] - Social History Does the pt smoke?: No Smoking Status: Never smoker Does the pt drink ETOH?: No Does the pt have substance abuse?: No - Immunizations Immunizations are current?: No Immunizations: TDAP >10years/unknown - POLST Patient has POLST: No PD ED PE NORMAL - Vitals Vital signs reviewed: Yes (hypertensive ) - General General: Alert and oriented X 3, No acute distress, Well developed/nourished - HEENT HEENT: PERRL, EOMI, Other (ecchymosis appears the stated age over the right lucy-orbital tissues. ) - Neck Neck: Supple, no meningeal sign, No bony TTP - Cardiac Cardiac: RRR, No murmur - Respiratory Respiratory: No respiratory distress, Clear bilaterally, Other (anterior chest wall pain near the clavicle is present. ) - Abdomen Abdomen: Normal bowel sounds, Soft, Non tender, Non distended, No organomegaly - Back Back: No CVA TTP, No spinal TTP - Derm Derm: Normal color, Warm and dry, No rash - Extremities Extremities: No deformity, No edema - Neuro Neuro: Alert and oriented X 3, client services account manager 2-12 intact, No motor deficit, No sensory deficit, Normal speech Eye Opening: Spontaneous Motor: Obeys Commands Verbal: Oriented GCS Score: 15 - Psych Psych: Normal mood, Normal affect Results - Vitals Vitals: Vital Signs - 24 hr 09/18/21 10:42 Temperature 36.4 C L Heart Rate 86 Respiratory 18 Rate Blood Pressure 182/63 H O2 Saturation 99 Oxygen O2 Source Room air - Labs Labs: Laboratory Tests 09/18/21 09/18/21 09/18/21 10:31 10:31 11:42 WBC 6.6 RBC 4.16 L Hgb 13.2 Hct 38.3 MCV 92.1 MCH 31.7 H MCHC 34.5 RDW 14.2 Plt Count 243 MPV 9.2 Neut # (Auto) 5.1 Lymph # (Auto) 0.9 L [place] # (Auto) 0.5 Eos # (Auto) 0.0 Baso # (Auto) 0.0 Absolute Nucleated RBC 0.00 Nucleated RBC % 0.0 Sodium 134 L Potassium 3.4 L Chloride 100 L Carbon Dioxide 23 Anion Gap 11.0 BUN 10 Creatinine 0.8 Estimated GFR (MDRD) 69 L Glucose 163 H Calcium 9.5 Total Bilirubin 0.3 AST 20 ALT 14 Alkaline Phosphatase 46 Total Protein 6.9 Albumin 3.8 Globulin 3.1 Albumin/Globulin Ratio 1.2 Lipase 35 Urine Color LT. YELLOW Urine Clarity CLEAR Urine pH 7.0 Ur Specific [place] 1.010 Urine Protein NEGATIVE Urine Glucose (UA) 250 H Urine Ketones NEGATIVE Urine Occult Blood TRACE-INTA Urine Nitrite NEGATIVE Urine Bilirubin NEGATIVE Urine Urobilinogen 0.2 (NORMAL) Ur Leukocyte Esterase NEGATIVE Ur Microscopic Review NOT INDICATED Urine Culture Comments NOT INDICATED - Rads (name of study) chest Radiology: Prelim report reviewed (Impression: No acute pulmonary process.), EMP read indepedently, See rad report Procedures - IVC sono (time) 1125 Bedside IVC sono: IVC measures (cm) (1.46), Euvolemia PD MEDICAL DECISION MAKING - ED course Complexity details: reviewed results, re-evaluated patient, considered differential, d/w patient ED course: 81-year-old female with a chest wall contusion 10 days ago continues to have significant pain to her anterior chest wall she has been taking some pain medication she was asked by her primary to come to the emerge department for further evaluation. She has chest wall tenderness she is administered dexamethasone and Toradol and a two-view chest is obtained as well as some blood work. Departure - Departure Clinical Impression: Contusion of rib on right side Qualifiers: Encounter type: subsequent encounter Qualified Code(s): S20.211D - Contusion of right front wall of thorax, subsequent encounter Condition: Stable Instructions: ED Contusion Rib Follow-Up: Raeann Leigh DO [Primary Care Provider] - Prescriptions: HYDROcod/ACETAM 5/325 [Ackerly 5/325] 1 - 2 tablet PO Q6H PRN #20 tablet PRN Reason: Pain Ondansetron Odt [Zofran] 4 mg TL Q6H PRN #20 tablet PRN Reason: Nausea / Vomiting Comments: Latasha, a chest wall contusion like what you have sustained usually takes a month to 6 weeks to resolve. The acute phase of the pain usually last as long as 2 -2 and half weeks. I have prescribed some additional pain medication for you as well as some nausea medicine and this has been E scribed to [facility] in [place].
[2021-09-18 11:35] LABS: BASOPHILS % (AUTO) 0.5 %; EOSINOPHILS % (AUTO) 0.6 %; HCT - HEMATOCRIT 38.3 % (37.0-47.0); HGB - HEMOGLOBIN 13.2 g/dL (12.0-16.0); LYMPHOCYTES # (AUTO) 0.9 10^3/uL (1.5-3.5); LYMPHOCYTES % (AUTO) 13.4 %; MEAN CORPUSCULAR HEMOGLOBIN 31.7 pg (27.0-31.0); MEAN CORPUSCULAR HGB CONC 34.5 g/dL (32.0-36.0); MEAN CORPUSCULAR VOLUME 92.1 fL (81.0-99.0); MEAN PLATELET VOLUME 9.2 fL (7.9-10.8); MONOCYTES # (AUTO) 0.5 10^3/uL (0.0-1.0); MONOCYTES % (AUTO) 7.9 %; NEUTROPHILS # (AUTO) 5.1 10^3/uL (1.5-6.6); NEUTROPHILS % (AUTO) 77.3 %; PLT - PLATELET COUNT 243 10^3/uL (130-450); RED BLOOD COUNT 4.16 10^6/uL (4.20-5.40); RED CELL DISTRIBUTION WIDTH 14.2 % (12.0-15.0); WHITE BLOOD COUNT 6.6 x10^3/uL (4.8-10.8)
[2021-09-18 11:49] LABS: ALBUMIN 3.8 g/dL (3.2-5.5); ALBUMIN/GLOBULIN RATIO 1.2 (1.0-2.2); BILIRUBIN,TOTAL 0.3 mg/dL (0.2-1.0); CALCIUM 9.5 mg/dL (8.5-10.3); CREATININE 0.8 mg/dL (0.4-1.0); POTASSIUM 3.4 mmol/L (3.5-5.0); TOTAL PROTEIN 6.9 g/dL (6.7-8.2)
[2021-09-18 12:03] LABS: BILIRUBIN,URINE NEGATIVE (NEGATIVE); GLUCOSE, URINE (UA) 250 mg/dL (NEGATIVE); KETONES,URINE (UA) NEGATIVE (NEGATIVE); LEUKOCYTE ESTERASE, URINE NEGATIVE (NEGATIVE); NITRITE,URINE NEGATIVE (NEGATIVE); OCCULT BLOOD,URINE TRACE-INTA (NEGATIVE); PROTEIN,URINE NEGATIVE (NEGATIVE); UROBILINOGEN,URINE 0.2 (NORMAL) E.U./dL (NORMAL)
[2021-09-18 12:05] LABS: CLARITY,URINE CLEAR (CLEAR)
[2021-09-18] MEDS ORDERED: ONDANSETRON 4 MG/2 ML VIAL IVP STA (12:06)
[2021-09-18] MEDS ORDERED: MORPHINE 2 MG/ML CARPUJECT IVP STA (12:06)
--- NOTE | 2021-09-18 12:08 | XRAY Report ---
PROCEDURE: Chest 2 View X-Ray INDICATIONS: R chest wall contusion worsening pain TECHNIQUE: 2 view(s) of the chest. COMPARISON: September 09, 2021 FINDINGS: SUPPORT DEVICES: None. LUNGS/PLEURA: Biapical pleural thickening/scarring. Hyperaeration the lungs. No focal consolidation, pleural effusion or space-occupying pneumothorax. MEDIASTINUM: The cardiac silhouette is within normal limits. Calcified granulomatous change. BONES/SOFT TISSUES: No acute abnormality. IMPRESSION: 1.No acute cardiopulmonary abnormality. Reviewed by: Chuy Ford MD on 09/18/2021 12:07 PM [facility] Approved by: Chuy Ford MD on 09/18/2021 12:07 PM [facility] Station ID: [id number]
[2021-09-18 13:42] VITALS: BP 167/81
== END 2021-09-18 13:50 | disposition home or self-care (01) ==
LOC: EDUNIT# → ED 10:38
DX: S20.211A Contusion of right front wall of thorax, initial encounter (principal); W19.XXXA Unspecified fall, initial encounter; I10 Essential (primary) hypertension
CPT/HCPCS: 36415; 80053; 81001; 81003; 83690; 85025; 87086; 96374; 96375; 99284

== ENCOUNTER 2021-12-11 09:42 | Outpatient (CLI) | payer MEDICARE, OTHER ==
--- NOTE | 2021-12-11 12:06 | MRI Report ---
PROCEDURE: Brain W/O INDICATIONS: HEADACHE, CONCUSSION TECHNIQUE: Noncontrast axial T1 spin echo, axial T2 fast spin echo, sagittal and axial FLAIR, coronal T2 fast sp in echo, axial gradient echo, axial diffusion and ADC through the brain. COMPARISON: None. FINDINGS: Image quality: Excellent. CSF Spaces: Basal cisterns are patent. No extra-axial fluid collections. Ventricles are normal in size and shape. Brain: No intracranial masses or hemorrhage. A few punctate areas of subcortical abnormal T2/FLAIR s ignal are nonspecific and unchanged compared to a prior MRI in 2017. Brainstem appears normal. Diffu dae-weighted images demonstrate no acute ischemic insult. No chronic ischemic insults. Normal intr avascular flow voids are present. Skull and face: Calvarium has normal marrow signal. Orbits appear normal. Sinuses: Sinuses and mastoids are clear. IMPRESSION: No acute or significant abnormality of the brain. Reviewed by: Leandro Garcia on 12/11/2021 12:05 PM PDT Approved by: Leandro Garcia on 12/11/2021 12:05 PM PDT Station ID: [id number]
== END 2021-12-11 09:43 | disposition home or self-care (01) ==
LOC: DI 09:42
PROVIDERS: ATTEND Family Medicine
DX: G44.89 Other headache syndrome (principal); S06.0X0A Concussion without loss of consciousness, initial encounter

== ENCOUNTER 2021-12-13 13:41 | Outpatient (CLI) | payer MEDICARE, OTHER ==
--- NOTE | 2021-12-13 16:13 | XRAY Report ---
PROCEDURE: Chest 2 View X-Ray INDICATIONS: CONTUSION TO CHEST TECHNIQUE: 2 view(s) of the chest. COMPARISON: September 18, 2021. FINDINGS: SUPPORT DEVICES: None. LUNGS/PLEURA: Hyperexpansion. Biapical pleural thickening/scarring. Coarsened interstitial markings. Blunting of the right costophrenic sulcus, likely secondary to scarring/atelectasis. No focal consoli dation, pleural effusion or space-occupying pneumothorax. MEDIASTINUM: The cardiac silhouette is within normal limits. Ectasia of the thoracic aorta. BONES/SOFT TISSUES: No acute abnormality. IMPRESSION: 1.No acute cardiopulmonary abnormality. Consider low-dose CT lung screening based on the patient's risk factors. Reviewed by: Cuhy Ford MD on 12/13/2021 4:12 PM PDT Approved by: Chuy Ford MD on 12/13/2021 4:12 PM PDT Station ID: [id number]
== END 2021-12-13 13:42 | disposition home or self-care (01) ==
LOC: DI.N 13:41
PROVIDERS: ATTEND Family Medicine
DX: R55 Syncope and collapse (principal)

== ENCOUNTER 2022-07-29 14:02 | Outpatient (CLI) | payer MEDICARE, OTHER ==
--- NOTE | 2022-07-29 16:55 | Ultrasound Report ---
PROCEDURE: Ext Limited Non Vascular INDICATIONS: MASS OF RIGHT SHOULDER JOINT TECHNIQUE: Real-time scanning was performed of the right shoulder, with image documentation. COMPARISON: None. FINDINGS: Focused ultrasound examination of right superior lateral shoulder shows no discrete soft tissue mass or fluid collection. Right trapezius muscle appears slightly more prominent in size compared to the l eft side. IMPRESSION: 1. No discrete soft tissue mass or fluid collection is seen in right shoulder soft tissue at the area of interest. 2. Possible slightly asymmetrically enlarged right trapezius muscle compared to the left side. Reviewed by: Bishnu Tesfaye MD on 07/29/2022 4:54 PM PST Approved by: Bishnu Tesfaye MD on 07/29/2022 4:54 PM PST Station ID: [id number]
== END 2022-07-29 14:03 | disposition home or self-care (01) ==
LOC: DI 14:02
PROVIDERS: ATTEND Nurse Practitioner Family
DX: M25.511 Pain in right shoulder (principal); M25.811 Other specified joint disorders, right shoulder; M19.011 Primary osteoarthritis, right shoulder

== ENCOUNTER 2022-09-04 10:02 | Outpatient (CLI) | payer MEDICARE, OTHER ==
[2022-09-04 12:08] LABS: BASOPHILS % (AUTO) 0.5 %; EOSINOPHILS # (AUTO) 0.1 10^3/uL (0.0-0.7); EOSINOPHILS % (AUTO) 0.8 %; HGB - HEMOGLOBIN 12.3 g/dL (12.0-16.0); LYMPHOCYTES # (AUTO) 1.7 10^3/uL (1.5-3.5); LYMPHOCYTES % (AUTO) 19.7 %; MEAN CORPUSCULAR HGB CONC 32.4 g/dL (32.0-36.0); MEAN CORPUSCULAR VOLUME 92.7 fL (81.0-99.0); MEAN PLATELET VOLUME 10.5 fL (7.9-10.8); MONOCYTES # (AUTO) 0.6 10^3/uL (0.0-1.0); MONOCYTES % (AUTO) 6.9 %; NEUTROPHILS % (AUTO) 71.7 %; PLT - PLATELET COUNT 273 10^3/uL (130-450); RED CELL DISTRIBUTION WIDTH 12.7 % (12.0-15.0); WHITE BLOOD COUNT 8.4 x10^3/uL (4.8-10.8)
[2022-09-04 12:28] LABS: ALBUMIN 3.4 g/dL (3.2-5.5); ALBUMIN/GLOBULIN RATIO 0.9 (1.0-2.2); BILIRUBIN,TOTAL 0.4 mg/dL (0.2-1.0); CALCIUM 9.3 mg/dL (8.5-10.3); CREATININE 0.9 mg/dL (0.4-1.0); MAGNESIUM 2.1 mg/dL (1.7-2.8); PHOSPHORUS 2.9 mg/dL (2.5-4.6); TOTAL PROTEIN 7.2 g/dL (6.7-8.2)
[2022-09-04 12:39] LABS: THYROID STIMULATING HORMONE 2.55 uIU/mL (0.34-5.60)
== END 2022-09-04 10:03 | disposition home or self-care (01) ==
LOC: LAB.N 10:02
PROVIDERS: ATTEND Nurse Practitioner Family
DX: Z02.89 Encounter for other administrative examinations (principal); I10 Essential (primary) hypertension; E03.9 Hypothyroidism, unspecified; M81.0 Age-related osteoporosis without current pathological fracture
CPT/HCPCS: 36415; 80053; 83735; 84100; 84443; 85025

== ENCOUNTER 2022-10-13 02:14 | Outpatient (CLI) | payer MEDICARE, OTHER | END 2022-10-13 02:15 | disposition short-term general hospital (02) | LOC: EMS 02:14 | DX: I21.3 ST elevation (STEMI) myocardial infarction of unspecified site (principal) | CPT/HCPCS: A0425; A0427 ==

== ENCOUNTER 2023-06-26 07:16 | Outpatient (CLI) | payer MEDICARE, OTHER | END 2023-06-26 07:17 | disposition home or self-care (01) | LOC: LAB.N 07:16 | PROVIDERS: ATTEND Internal Medicine Interventional Cardiology | DX: I25.2 Old myocardial infarction (principal); R53.83 Other fatigue | CPT/HCPCS: 36415; 80053; 80061; 83721; 84443; 85025 ==

== ENCOUNTER 2023-06-26 07:51 | Outpatient (CLI) | payer MEDICARE, OTHER | END 2023-06-26 07:52 | disposition short-term general hospital (02) | LOC: EMS 07:51 | DX: R07.89 Other chest pain (principal); R06.02 Shortness of breath | CPT/HCPCS: A0425; A0429; A0888 ==

== ENCOUNTER 2023-07-21 12:46 | Outpatient (CLI) | payer MEDICARE, OTHER ==
--- NOTE | 2023-07-21 14:14 | DEXA Report ---
PROCEDURE: Dexa Spine and/or Hip INDICATIONS: POST MENOPAUSAL TECHNIQUE: Dual energy x-ray absorptiometry (DXA) was performed on a [employer] System. Regions measur ed are the AP Spine, femoral neck, and if needed forearm. COMPARISON: May 04, 2015 FINDINGS: Lumbar Spine: Bone Mineral Density 0.66 g/cm/cm,T score -4.3. Previously -4.1 Left Femoral Neck: Bone Mineral Density 0.48 g/cm/cm, T score -4, previously -3.3. Left Hip: Bone Mineral Density 0.46 g/cm/cm,T score -4.3. Previously -3.8 (T score greater or equal to -1.0: NORMAL) (T score from -1.1 to -2.4: OSTEOPENIA) (T score less than or equal to -2.5 to: OSTEOPOROSIS) Impression: By WHO criteria, this patient has osteoporosis. Significantly increased risk of fracture. Bone minera l densities have decreased in the left femoral neck and hip compared to 2015. Patients with diagnosis of osteoporosis or osteopenia should have regular bone mineral density assess ment. For those eligible for Medicare, routine testing is allowed once every 2 years. Testing frequ ency can be increased for patients who have rapidly progressing disease or for those who are receivin g medical therapy to restore bone mass. Reviewed by: Rufino Day MD on 07/21/2023 2:12 PM PST Approved by: Rufino Day MD on 07/21/2023 2:12 PM PST Station ID: [id number]
== END 2023-07-21 12:47 | disposition home or self-care (01) ==
LOC: DI 12:46
PROVIDERS: ATTEND Nurse Practitioner Family
DX: M81.0 Age-related osteoporosis without current pathological fracture (principal); Z78.0 Asymptomatic menopausal state

== ENCOUNTER 2023-08-12 09:41 | Outpatient (CLI) | payer MEDICARE, OTHER ==
--- NOTE | 2023-08-12 12:23 | XRAY Report ---
PROCEDURE: Chest 2V INDICATIONS: ACUTE LOWER RESPIRATORY INFECTION TECHNIQUE: 2 views of the chest were acquired. COMPARISON: None. FINDINGS: Surgical changes and devices: Left chest wall generator with cardiac leads. Lungs and pleura: Emphysema. Stable biapical scarring. No acute airspace opacity. Mediastinum: Mediastinal contours appear normal. Heart size is normal. Calcified right hilar node . Bones and chest wall: No suspicious bony lesions. Overlying soft tissues appear unremarkable. IMPRESSION: No acute cardiopulmonary process. Reviewed by: Fede Caceres MD on 08/12/2023 12:22 PM PST Approved by: Fede Caceres MD on 08/12/2023 12:22 PM PST Station ID: [id number]
== END 2023-08-12 09:42 | disposition home or self-care (01) ==
LOC: LAB.N 09:41 → DI.N 09:42
PROVIDERS: ATTEND Physician Assistant Medical
DX: J22 Unspecified acute lower respiratory infection (principal)

== ENCOUNTER 2023-09-06 09:30 | Outpatient (CLI) | payer MEDICARE, OTHER | END 2023-09-06 23:59 | disposition critical access hospital (66) | LOC: EMS 09:30 | DX: R11.2 Nausea with vomiting, unspecified (principal); R50.9 Fever, unspecified; Z86.16 Personal history of COVID-19 | CPT/HCPCS: A0425; A0427 ==

== ENCOUNTER 2023-09-06 10:02 | Emergency (ER) | payer MEDICARE, OTHER ==
[2023-09-06 10:53] LABS: BASOPHILS % (AUTO) 0.2 %; EOSINOPHILS % (AUTO) 0.1 %; HCT - HEMATOCRIT 38.1 % (37.0-47.0); HGB - HEMOGLOBIN 12.4 g/dL (12.0-16.0); LYMPHOCYTES # (AUTO) 0.4 10^3/uL (1.5-3.5); LYMPHOCYTES % (AUTO) 3.5 %; MEAN CORPUSCULAR HEMOGLOBIN 29.8 pg (27.0-31.0); MEAN CORPUSCULAR HGB CONC 32.5 g/dL (32.0-36.0); MEAN CORPUSCULAR VOLUME 91.6 fL (81.0-99.0); MEAN PLATELET VOLUME 9.5 fL (7.9-10.8); MONOCYTES # (AUTO) 0.7 10^3/uL (0.0-1.0); MONOCYTES % (AUTO) 5.4 %; NEUTROPHILS # (AUTO) 11.5 10^3/uL (1.5-6.6); NEUTROPHILS % (AUTO) 90.4 %; PLT - PLATELET COUNT 202 10^3/uL (130-450); RED BLOOD COUNT 4.16 10^6/uL (4.20-5.40); RED CELL DISTRIBUTION WIDTH 14.2 % (12.0-15.0); WHITE BLOOD COUNT 12.7 x10^3/uL (4.8-10.8)
[2023-09-06 11:13] LABS: TROPONIN I HIGH SENSITIVITY 5.3 ng/L (2.3-14.8)
[2023-09-06 11:17] LABS: ALBUMIN 3.7 g/dL (3.2-5.5); ALBUMIN/GLOBULIN RATIO 1.4 (1.0-2.2); BILIRUBIN,TOTAL 1.1 mg/dL (0.2-1.0); CALCIUM 8.9 mg/dL (8.5-10.3); CREATININE 0.8 mg/dL (0.6-1.3); POTASSIUM 3.9 mmol/L (3.5-4.5); TOTAL PROTEIN 6.3 g/dL (6.4-8.9)
[2023-09-06] MEDS: ONDANSETRON 4 MG/2 ML VIAL IVP STA (11:21)
[2023-09-06] MEDS: SODIUM CHLORIDE 0.9% 1,000 ML IV STA (11:21)
--- NOTE | 2023-09-06 11:30 | XRAY Report ---
PROCEDURE: Chest 1V INDICATIONS: syncope TECHNIQUE: One view of the chest was acquired. COMPARISON: 08/12/2023 FINDINGS: Surgical changes and devices: A pacer device can be seen. Lungs and pleura: On the semiupright images, no large pneumothorax or large pleural effusions can be seen. No focal infiltrates are seen. The lungs are hyperexpanded. Mediastinum: Mediastinal contours appear normal. Heart size is normal. At least one calcified medi astinal lymph node can be seen. Bones and chest wall: No suspicious bony lesions. Age-appropriate degenerative changes are seen. O verlying soft tissues appear unremarkable. IMPRESSION: Hyperexpanded lungs are seen, without an acute cardiopulmonary abnormality seen. Reviewed by: Theron Ashton MD on 09/06/2023 10:29 AM [facility] Approved by: Theron Ashton MD on 09/06/2023 10:29 AM [facility] Station ID: [id number]
--- NOTE | 2023-09-06 12:03 | ED Physician Documentation ---
PD HPI NVD - Stated complaint Stated Complaint: N/V - Chief complaint Chief Complaint: Abd Pain - History obtained from History obtained from: Patient - Additonal information Additional information: Patient is an 83-year-old female presenting for evaluation of nausea and vomiting and a syncopal episode. She has a history of pacemaker and is on Plavix. She reports having nausea since last night and had 1 episode of emesis last night and again this morning. She was sitting on the toilet and calling out for help for her . states that when he arrived she was kind of slumped off to the side. There is no seizure activity. He thinks that she was still responsive but is not entirely clear. He helped her up and was able to get her back to bed. He states that she seemed really weak. No focal deficits. No headache. Patient denies chest pain or shortness of air. Reports ongoing nausea. Denies abdominal pain, dysuria, diarrhea. Patient had takeout Armenian food yesterday but ate the same food And he is not ill. Review of Systems Constitutional: denies: Fever Cardiac: denies: Chest pain / pressure Respiratory: denies: Dyspnea GI: reports: Nausea, Vomiting. denies: Abdominal Pain, Diarrhea Neurologic: reports: Syncope PD PAST MEDICAL HISTORY - Past Medical History Past Medical History: Yes Cardiovascular: Hypertension, High cholesterol Respiratory: COPD - Present Medications Home Medications: Ambulatory Orders Medication Instructions Recorded Confirmed Ondansetron Odt [Zofran] 4 mg TL Q6H PRN #10 tablet 09/06/23 - Allergies Allergies/Adverse Reactions: Allergies Allergy/AdvReac Type Severity Reaction Status Date / Time iodine Allergy Unknown Verified 09/06/23 10:16 paroxetine Allergy Unknown Verified 09/06/23 10:16 pseudoephedrine Allergy Unknown Verified 09/06/23 10:16 - Social History Does the pt smoke?: No Smoking Status: Never smoker PD ED PE NORMAL - General General: Alert and oriented X 3, No acute distress, Well developed/nourished - HEENT HEENT: Atraumatic, Moist mucous membranes, Pharynx benign - Neck Neck: Supple, no meningeal sign - Cardiac Cardiac: RRR, Strong equal pulses - Respiratory Respiratory: No respiratory distress, Clear bilaterally - Abdomen Abdomen: Normal bowel sounds, Soft, Non tender, Non distended - Derm Derm: Warm and dry - Extremities Extremities: No deformity, No edema - Neuro Neuro: Alert and oriented X 3, 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, No motor deficit, No sensory deficit, Normal speech Results - Vitals Vitals: Vital Signs - 24 hr 09/06/23 09/06/23 09/06/23 10:11 11:10 12:15 Temperature 36.7 C Heart Rate 86 79 Heart Rate [ 81 Sitting] Heart Rate [ 90 Standing] Heart Rate [ 80 Supine] Respiratory 18 16 Rate Blood Pressure 152/61 H 139/68 H Blood Pressure 130/65 [Sitting] Blood Pressure 139/67 H [Standing] Blood Pressure 141/60 H [Supine] O2 Saturation 98 99 09/06/23 14:00 Temperature Heart Rate 72 Heart Rate [ Sitting] Heart Rate [ Standing] Heart Rate [ Supine] Respiratory 16 Rate Blood Pressure 133/63 H Blood Pressure [Sitting] Blood Pressure [Standing] Blood Pressure [Supine] O2 Saturation 100 Oxygen O2 Source Room air - EKG (time done) 1035 EKG releavant findings:: EKG personally interpreted by author of this note. Relevant findings are: Rate 80, normal sinus rhythm, no STEMI, QTc 432 - Labs Labs: Laboratory Tests 09/06/23 09/06/23 09/06/23 10:47 10:47 13:27 WBC 12.7 H RBC 4.16 L Hgb 12.4 Hct 38.1 MCV 91.6 MCH 29.8 MCHC 32.5 RDW 14.2 Plt Count 202 MPV 9.5 Neut # (Auto) 11.5 H Lymph # (Auto) 0.4 L [place] # (Auto) 0.7 Eos # (Auto) 0.0 Baso # (Auto) 0.0 Absolute Nucleated RBC 0.00 Nucleated RBC % 0.0 Sodium 129 L Potassium 3.9 Chloride 97 L Carbon Dioxide 26 Anion Gap 6.0 BUN 11 Creatinine 0.8 Estimated GFR (MDRD) 69 L Glucose 125 H Calcium 8.9 Total Bilirubin 1.1 H AST 18 ALT 18 Alkaline Phosphatase 50 Troponin I High Sens 5.3 Total Protein 6.3 L Albumin 3.7 Globulin 2.6 Albumin/Globulin Ratio 1.4 Lipase 20 Urine Color YELLOW Urine Clarity CLEAR Urine pH 7.5 Ur Specific [place] 1.010 Urine Protein NEGATIVE Urine Glucose (UA) NEGATIVE Urine Ketones NEGATIVE Urine Occult Blood SMALL H Urine Nitrite NEGATIVE Urine Bilirubin NEGATIVE Urine Urobilinogen 0.2 (NORMAL) Ur Leukocyte Esterase TRACE H Urine RBC 0-5 Urine WBC 4-5 Ur Squamous Epith Cells MOD Squamous H Urine Bacteria None Seen Ur Microscopic Review INDICATED Urine Culture Comments NOT INDICATED PD Medical Decision Making - ED course Complexity details: reviewed results, re-evaluated patient, d/w patient, d/w family ED course: Patient is an 83-year-old female with a history of a pacemaker presenting for evaluation of a possible syncopal event with nausea and vomiting. Patient has had 2 episodes of vomiting, last night and this morning. While on the toilet it sounds like she may have had a syncopal episode. No seizure-like activity. Well neuroexam. No complaints other than nausea. Abdominal exam is benign. CBC, chemistries, urine analysis, troponin and EKG were obtained and reviewed. Chest x-ray is negative for pneumonia. Patient is feeling better here with IV fluids and Zofran and orthostatics are negative. Pacemaker was interrogated without any events. I did speak with the [employer] who also confirmed that there were no events. Patient counseled on continued supportive care for her nausea and vomiting as well as close follow-up with her PCP. She is advised on concerning symptoms to return for. Departure - Departure Disposition: 01 Home, Self Care Clinical Impression: Syncope, Hyponatremia, Nausea & vomiting Condition: Stable Instructions: ED Hyponatremia, ED Fainting Unkn Cause, ED Nausea Vomiting Follow-Up: Quiana Clarke ARNP [Primary Care Provider] - Prescriptions: Ondansetron Odt [Zofran] 4 mg TL Q6H PRN #10 tablet PRN Reason: Nausea / Vomiting Comments: Your testing today shows that your sodium level is slightly low. This could be from the fact that you do not eat much salt in your diet so I would recommend trying to add a little bit more salt to this weekend. We did give you IV fluids to help with hydration. Your pacemaker was interrogated and there have been no events. I would recommend close follow-up with your primary care provider. I have sent a prescription for an antinausea medication to [facility] in [place]. Return to the emergency department with any new or worsening symptoms. Forms: PCP List Discharge Date/Time: 09/06/23 14:55
[2023-09-06 13:49] LABS: BILIRUBIN,URINE NEGATIVE (NEGATIVE); GLUCOSE, URINE (UA) NEGATIVE (NEGATIVE); KETONES,URINE (UA) NEGATIVE (NEGATIVE); LEUKOCYTE ESTERASE, URINE TRACE (NEGATIVE); NITRITE,URINE NEGATIVE (NEGATIVE); OCCULT BLOOD,URINE SMALL (NEGATIVE); PH,URINE 7.5 PH (5.0-7.5); PROTEIN,URINE NEGATIVE (NEGATIVE); UROBILINOGEN,URINE 0.2 (NORMAL) E.U./dL (NORMAL)
[2023-09-06 13:53] LABS: CLARITY,URINE CLEAR (CLEAR)
[2023-09-06 13:57] LABS: BACTERIA,URINE None Seen /HPF (None Seen); RBC,URINE 0-5 /HPF (0-5); SQUAMOUS EPITHELIAL CELL,UR MOD Squamous (<= Few)
[2023-09-06 14:06] VITALS: BP 133/63; O2SAT 100
== END 2023-09-06 14:55 | disposition home or self-care (01) ==
LOC: ED 10:02 → MERGE 10:02 → ED 14:55
DX: R55 Syncope and collapse (principal); E87.1 Hypo-osmolality and hyponatremia; R11.2 Nausea with vomiting, unspecified; Z95.0 Presence of cardiac pacemaker; Z79.01 Long term (current) use of anticoagulants; I10 Essential (primary) hypertension
CPT/HCPCS: 36415; 80053; 81001; 81003; 83690; 84484; 85025; 87086; 93005; 96360; 99284

== ENCOUNTER 2023-09-08 14:37 | Outpatient (CLI) | payer MEDICARE, OTHER ==
[2023-09-08 17:32] LABS: BASOPHILS % (AUTO) 0.5 %; EOSINOPHILS # (AUTO) 0.1 10^3/uL (0.0-0.7); EOSINOPHILS % (AUTO) 2.5 %; HCT - HEMATOCRIT 35.2 % (37.0-47.0); HGB - HEMOGLOBIN 11.2 g/dL (12.0-16.0); LYMPHOCYTES % (AUTO) 21.6 %; MEAN CORPUSCULAR HEMOGLOBIN 29.7 pg (27.0-31.0); MEAN CORPUSCULAR HGB CONC 31.8 g/dL (32.0-36.0); MEAN CORPUSCULAR VOLUME 93.4 fL (81.0-99.0); MEAN PLATELET VOLUME 10.3 fL (7.9-10.8); MONOCYTES # (AUTO) 0.6 10^3/uL (0.0-1.0); MONOCYTES % (AUTO) 12.6 %; NEUTROPHILS # (AUTO) 2.8 10^3/uL (1.5-6.6); NEUTROPHILS % (AUTO) 62.6 %; PLT - PLATELET COUNT 229 10^3/uL (130-450); RED BLOOD COUNT 3.77 10^6/uL (4.20-5.40); RED CELL DISTRIBUTION WIDTH 14.5 % (12.0-15.0); WHITE BLOOD COUNT 4.4 x10^3/uL (4.8-10.8)
[2023-09-08 17:47] LABS: ALBUMIN 3.8 g/dL (3.2-5.5); ALBUMIN/GLOBULIN RATIO 1.4 (1.0-2.2); ALKALINE PHOSPHATASE 50 IU/L (42-121); ALT ALANINE AMINOTRANSFERASE 18 IU/L (10-60); AST ASPARTATE AMINOTRANSFERASE 23 IU/L (10-42); BILIRUBIN,TOTAL 0.5 mg/dL (0.2-1.0); BUN - BLOOD UREA NITROGEN 10 mg/dL (6-20); CARBON DIOXIDE - CO2 26 mmol/L (21-32); CHLORIDE 103 mmol/L (101-111); CHOL/HDL RATIO 1.5 (<4.4); CHOLESTEROL 99 mg/dL; CREATININE 0.8 mg/dL (0.6-1.3); GFR - MDRD 69 (>89); GLUCOSE 122 mg/dL (74-104); HDL CHOLESTEROL 64 mg/dL; LDL CHOLESTEROL,CALCULATED 26 mg/dL; LDL/HDL RATIO 0.4 (<4.4); POTASSIUM 3.7 mmol/L (3.5-4.5); SODIUM 134 mmol/L (135-145); TOTAL PROTEIN 6.5 g/dL (6.4-8.9); TRIGLYCERIDES 46 mg/dL (48-352); VLDL CHOLESTEROL 9 mg/dL
[2023-09-08 18:03] LABS: THYROID STIMULATING HORMONE 4.01 uIU/mL (0.34-5.60)
== END 2023-09-08 14:38 | disposition home or self-care (01) ==
LOC: LAB.N 14:37
PROVIDERS: ATTEND Nurse Practitioner Family
DX: I10 Essential (primary) hypertension (principal); E78.5 Hyperlipidemia, unspecified; E03.9 Hypothyroidism, unspecified
CPT/HCPCS: 36415; 80053; 80061; 83721; 84443; 85025

== ENCOUNTER 2023-09-17 11:24 | Outpatient (CLI) | payer MEDICARE, OTHER ==
[2023-09-17 17:34] LABS: BASOPHILS % (AUTO) 0.6 %; EOSINOPHILS # (AUTO) 0.1 10^3/uL (0.0-0.7); EOSINOPHILS % (AUTO) 1.4 %; HCT - HEMATOCRIT 38.5 % (37.0-47.0); HGB - HEMOGLOBIN 12.1 g/dL (12.0-16.0); LYMPHOCYTES # (AUTO) 1.2 10^3/uL (1.5-3.5); LYMPHOCYTES % (AUTO) 18.9 %; MEAN CORPUSCULAR HEMOGLOBIN 29.4 pg (27.0-31.0); MEAN CORPUSCULAR HGB CONC 31.4 g/dL (32.0-36.0); MEAN CORPUSCULAR VOLUME 93.7 fL (81.0-99.0); MEAN PLATELET VOLUME 10.4 fL (7.9-10.8); MONOCYTES # (AUTO) 0.5 10^3/uL (0.0-1.0); MONOCYTES % (AUTO) 7.3 %; NEUTROPHILS # (AUTO) 4.5 10^3/uL (1.5-6.6); NEUTROPHILS % (AUTO) 71.5 %; PLT - PLATELET COUNT 242 10^3/uL (130-450); RED BLOOD COUNT 4.11 10^6/uL (4.20-5.40); RED CELL DISTRIBUTION WIDTH 14.3 % (12.0-15.0); WHITE BLOOD COUNT 6.3 x10^3/uL (4.8-10.8)
[2023-09-17 17:51] LABS: ALBUMIN/GLOBULIN RATIO 1.4 (1.0-2.2); BILIRUBIN,TOTAL 0.5 mg/dL (0.2-1.0); CALCIUM 9.5 mg/dL (8.5-10.3); CREATININE 0.8 mg/dL (0.6-1.3); MAGNESIUM 1.9 mg/dL (1.7-2.3); TOTAL PROTEIN 6.8 g/dL (6.4-8.9)
== END 2023-09-17 11:25 | disposition home or self-care (01) ==
LOC: LAB.N 11:24
PROVIDERS: ATTEND Nurse Practitioner Family
DX: R42 Dizziness and giddiness (principal); R25.2 Cramp and spasm; R09.89 Other specified symptoms and signs involving the circulatory and respiratory systems; E87.1 Hypo-osmolality and hyponatremia
CPT/HCPCS: 36415; 80053; 83735; 85025

== ENCOUNTER 2023-09-26 12:38 | Outpatient (CLI) | payer MEDICARE, OTHER ==
[2023-09-26 14:26] LABS: CALCIUM 9.7 mg/dL (8.5-10.3); CREATININE 0.8 mg/dL (0.6-1.3); POTASSIUM 4.1 mmol/L (3.5-4.5)
--- NOTE | 2023-09-27 18:50 | Ultrasound Report ---
PROCEDURE: Carotid Doppler Complete INDICATIONS: DIZZINESS ON STANDING, CAROTID BRUIT TECHNIQUE: Color and pulse Doppler interrogation was performed of both carotid systems, with image documentation and velocity measurements. COMPARISON: None. FINDINGS: Right side: Brachial blood pressure: 181/75 mm Hg. Common carotid artery peak systolic velocity: 106 cm/sec. Internal carotid artery peak systolic velocity: 77 cm/sec. Internal carotid artery end diastolic velocity: 14 cm/sec. External carotid artery peak systolic velocity: 62 cm/sec. ICA/CCA peak systolic ratio: 0.7 . Berger scale imaging description: Calcified plaques are seen at the carotid bulb and internal carotid artery Percent internal carotid artery stenosis: No hemodynamically significant stenosis. Vertebral artery: Flow direction is antegrade. Left side: Brachial blood pressure: 178/67 mm Hg. Common carotid artery peak systolic velocity: 44 cm/sec. Internal carotid artery peak systolic velocity: 61 cm/sec. Internal carotid artery end diastolic velocity: 25 cm/sec. External carotid artery peak systolic velocity: 51 cm/sec. ICA/CCA peak systolic ratio: 1.3 . Berger scale imaging description: Calcified plaques are seen at the carotid bulb and internal carotid artery Percent internal carotid artery stenosis: No hemodynamically significant stenosis. Vertebral artery: Flow direction is antegrade. IMPRESSION: 1. In the right internal carotid artery, there is no hemodynamically significant stenosis based on pe ak systolic velocity criteria. 2. In the left internal carotid artery, there is no hemodynamically significant stenosis based on pea k systolic velocity criteria. 3. Antegrade blood flow within the right vertebral artery. 4. Antegrade blood flow within the left vertebral artery. 5. 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 The estimate of stenosis included in the report of the imaging study was calculated using the [facility]-end orsed standards of carotid artery stenosis. Reviewed by: Milly Richards MD on 09/27/2023 4:29 PM PST Approved by: Milly Richards MD on 09/27/2023 4:29 PM PST Station ID: [id number]
== END 2023-09-26 12:39 | disposition home or self-care (01) ==
LOC: DI 12:38
PROVIDERS: ATTEND Nurse Practitioner Family
DX: I65.23 Occlusion and stenosis of bilateral carotid arteries (principal); E87.1 Hypo-osmolality and hyponatremia
CPT/HCPCS: 36415; 80048; 93880

== ENCOUNTER 2023-11-23 13:40 | Outpatient (CLI) | payer MEDICARE, OTHER ==
--- NOTE | 2023-11-25 10:00 | Mammography Report ---
BILATERAL DIGITAL SCREENING MAMMOGRAM 3D/2D: 11/23/2023 CLINICAL: Routine screening. Comparison is made to exams dated: 08/21/2022 mammogram, 07/04/2021 mammogram, 06/14/2020 mammogram, 08/16/2018 mammogram, and 04/21/2018 mammogram - [facility]. Both breasts are heterogeneously dense, which may obscure small masses (category c / 51-75% glandular tissue). There are benign calcifications in both breasts. There also are benign vascular calcifications in yissel th breasts. No significant masses, calcifications, or other findings are seen in either breast. There has been no significant interval change. IMPRESSION: BENIGN There is no mammographic evidence of malignancy. A 1 year screening mammogram is recommended. This exam was interpreted at Station ID: [id number]. NOTE: For mammograms, a report in lay terms will be sent to the patient. Approximately 15% of breast malignancies will not be visualized mammographically. In the management of a palpable breast mass, a negative mammogram must not discourage biopsy of a clinically suspicious lesion. Electronically Signed By: Gagan Daugherty M.D. [facility] – [place]:11/24/2023 14:34:04 letter sent: No_Letter ACR BI-RADS Category 2: Benign Finding(s) 3342F PARENCHYMAL PATTERN: (D) - The breast(s) demonstrate(s) heterogeneously dense fibroglandular partoniay aggie. BI-RADS CATEGORY: (2) - 2 RECOMMENDATION: (ANNUAL) - Recommend routine annual screening mammography. [id number] 1 year screening LATERALITY: (B)
== END 2023-11-23 13:41 | disposition home or self-care (01) ==
LOC: DI.N 13:40
DX: Z12.31 Encounter for screening mammogram for malignant neoplasm of breast (principal); R92.333 Mammographic heterogeneous density, bilateral breasts

== ENCOUNTER 2024-04-29 09:31 | Outpatient (CLI) | payer MEDICARE, OTHER ==
--- NOTE | 2024-04-29 15:48 | XRAY Report ---
PROCEDURE: Shoulder 2+V RT INDICATIONS: OSTEOARTHRITIS OF RIGHT SHOULDER TECHNIQUE: 3 views of the shoulder were acquired. COMPARISON: 11/27/2019. FINDINGS: Bones: No fractures or dislocations. Mild acromioclavicular and glenohumeral joint degeneration. No suspicious bony lesions. Visualized ribs appear intact. Soft tissues: No suspicious soft tissue calcifications. The visualized lungs are within normal limi ts. IMPRESSION: No acute bony abnormality. Mild acromioclavicular and glenohumeral joint degeneration. Reviewed by: South Thompson MD on 04/29/2024 3:47 PM PDT Approved by: South Thompson MD on 04/29/2024 3:47 PM PDT Station ID: [id number]
== END 2024-04-29 09:32 | disposition home or self-care (01) ==
LOC: LAB.N 09:31 → DI.N 09:32
PROVIDERS: ATTEND Nurse Practitioner Family
DX: M19.011 Primary osteoarthritis, right shoulder (principal)